=== PATIENT | male | born 1955 | race Two or more races ===

== ENCOUNTER 2024-05-30 06:25 | Emergency (ER) | payer MEDICARE, MEDICAID, SELFPAY ==
[2024-05-30] VITALS (29 sets, daily range): BP systolic 106–145; BP diastolic 72–104; PULSE 61–202; RESP 10–28; TEMP 36.7–37; O2SAT 92–100; BMI 29.8
--- NOTE | 2024-05-30 06:29 | EKG_ITS ---
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
--- NOTE | 2024-05-30 06:45 | PC.NURSE ---
PT BROUGHT TO ER FROM HOME VIA AMBULANCE, PT C/O CP, EMS REPORTED THAT PT HAD SVT, 6MG ADENOSINE GIVEN . NO C/O SOB. PT RECENTLY HAD LIVER AND KIDNEY TRANSPLANT.
--- NOTE | 2024-05-30 06:55 | XR_ITS ---
Examination: AP chest single view Technique one AP portable upright chest single view Exam date and time: May 30, 2024 0808 hrs. Comparison April 14, 2024 Indications: Onset chest pain today. Findings: Lordotic chest Mild prominence left ventricle No lobar pneumonia or pulmonary edema Prominent osteopenia Impression: No pneumonia or pulmonary edema
--- NOTE | 2024-05-30 06:59 | PD.EDCHEST ---
ED Chest Pain RME/HPI General Chief Complaint: Chest Pain Stated Complaint: SVT Time Seen by Provider: 05/30/24 06:43 Arrival date/time: 05/30/24 06:25 Limitations: no limitations RME / HPI RME / HPI narrative: DR. BARBOZA MAIN ED EVALUATION: 69 year old male, 3 weeks post liver transplant with rejection medicines, presents to the Emergency Department [facility] with complaint of chest pain starting around 5:30 this morning. It is now resolved. He has history history of atrial fibrillation, but is no longer on his blood thinners. He currently is chest pain free. He notes no change in his appetite. Has been tolerating PO fluids well. He does take several new medicines for the last three weeks including anti-rejection medicines as prescribed by [facility]. He denies diarrhea. He states now his urination has increased significantly and he is up all night and urinating several times during the day. He denies dysuria. Related Data Home Medications ?Medication ?Instructions ?Recorded ?Confirmed apixaban 5 mg tablet (Eliquis) 5 mg PO QDAY 02/13/24 03/02/24 lenvatinib 12 mg/day (4 mg x 3) 12 mg PO QDAY 02/13/24 03/02/24 capsule (Lenvima) ondansetron 4 mg disintegrating 4 mg PO PRN PRN Vomiting 02/13/24 03/02/24 tablet Previous Rx's ?Medication ?Instructions ?Recorded famotidine 20 mg tablet 20 mg PO QDAY #30 tabs 03/24/21 lactulose 20 gram oral packet 20 g PO BID #30 ea 02/11/24 carvedilol 12.5 mg tablet (Coreg) 12.5 mg PO BID #60 tabs 03/04/24 hydralazine 25 mg tablet 25 mg PO BID #60 tabs 03/04/24 tramadol 50 mg tablet 50 mg PO Q8H PRN pain #10 tabs 04/14/24 metoprolol succinate 50 mg 50 mg PO QDAY #5 tabs 05/30/24 tablet,extended release 24 hr Allergies Allergy/AdvReac Type Severity Reaction Status Date / Time No Known Allergies Allergy Verified 04/03/24 17:53 Review of Systems Review of Systems Systems Reviewed: All systems reviewed, normal except as documented Narrative Review of Systems: GEN: No fever, no chills, no weight loss EYES: No discharge, no visual changes, no pain HEENT: No ear pain, no congestion, no sore throat PULM: No shortness of breath, no cough, no congestion CV: + chest pain (resolved see HPI), no dyspnea on exertion, no palpitations GI: No nausea, no vomiting, no diarrhea, no pain, no constipation : + increased urination; no dysuria MUSC/SKEL: No joint pain, no back pain SKIN: No rash PSYCH: No hallucinations, no depression HEME/LYMPH: No easy bleeding or bruising tendencies NEURO: No weakness, no headache Past Medical History Past Medical History CARDIAC: Positive Atrial Fibrillation, Hypertension and Hypotension GASTROINTESTINAL: Positive Cirrhosis, Hemorrhoids and Gastroesophageal Reflux Disease MUSCULOSKELETAL: Positive Arthritis HEMATOLOGIC: Positive Blood Disorders and Anemia PSYCHO/SOCIAL: Positive Depression and Anxiety OTHER HISTORY: Positive Falls, Blood Transfusions and Cancer Family History FAMILY HISTORY: Positive Family Cardiac Disorders and Family Cancer Social History SMOKING STATUS: Never smoker SUBSTANCE USE: does not use ALCOHOL: Never ED Exam General Limitations: Present no limitations General appearance: Present alert, in no apparent distress and other (he is grossly jaundice) Head Head exam: Present atraumatic, normocephalic and normal inspection Eye Eye exam: Present normal appearance, PERRL and EOMI ENT ENT exam: Present normal exam, normal oropharynx and mucous membranes moist Neck Neck exam: Present normal inspection, full ROM and trachea midline Chest Chest inspection: Present normal inspection and symmetric chest wall rise Respiratory Respiratory exam: Present normal lung sounds bilaterally Cardiovascular Cardiovascular exam: Present regular rate, normal rhythm and normal heart sounds Abdominal Exam Abdominal exam: Present soft, normal bowel sounds and other (Has a large chevron shaped scar with multiple naomi it clean, from recent liver transplant, but otherwise he has no abdominal pain.) Extremities Exam Extremities exam: Present normal inspection and full ROM Back Exam Back exam: Present normal inspection and full ROM Neurological Exam Neurological exam: Present alert, oriented X3 and CN II-XII intact Psychiatric Psychiatric exam: Present normal affect and normal mood Skin Skin exam: Present warm, dry, intact and normal color Course Quality Measures none Orders Category Date Time Status EKG (ED ONLY) *Do not use* NOW Care 05/30/24 06:29 Completed EKG (ED ONLY) *Do not use* NOW Care 05/30/24 12:43 Completed Diet Regular Diet 05/30/24 Breakfast Active EKG (ED Only) Stat Exams 05/30/24 06:29 Draft EKG (ED Only) Stat Exams 05/30/24 12:43 Draft XR chest 1V Stat Exams 05/30/24 06:55 Completed CBC Stat Lab 05/30/24 07:04 Completed CMP [Comprehensive Metabolic Panel] Stat Lab 05/30/24 07:04 Completed Lactate (Lactic Acid) Stat Lab 05/30/24 07:04 Completed Lipase Stat Lab 05/30/24 07:04 Completed Magnesium Stat Lab 05/30/24 07:04 Completed Partial Thromboplastin Time Stat Lab 05/30/24 07:04 Completed Phosphorous Stat Lab 05/30/24 07:04 Completed Procalcitonin Stat Lab 05/30/24 07:04 Completed Prothrombin Time with INR Stat Lab 05/30/24 07:04 Completed Troponin I Stat Lab 05/30/24 07:04 Completed Troponin I Stat Lab 05/30/24 09:40 Completed Magnesium Sulfate 2 GM Ivpb [Magnesium Sulfate Ivpb] Med 05/30/24 07:59 Discontinued 2 gm in 50 ml IV X1 Metoprolol Succinate Xl [Toprol Xl] Med 05/30/24 15:03 Discontinued 50 mg PO X1 ONE Metoprolol Tartrate [Lopressor] Med 05/30/24 06:56 Discontinued 50 mg PO X1 ONE Metoprolol Tartrate [Lopressor] Med 05/30/24 13:00 Discontinued 50 mg PO X1 ONE Reevaluation(s) Reevaluation #1: Patient is back in atrial fibrillation, rate 121. Waiting for transplant to call back. Time: 12:57 Reevaluation #2: Patient is back in sinus Time: 15:05 Vital Signs Vital signs: Vital Signs Temperature 98.4 F 05/30/24 06:25 Pulse Rate 141 H 05/30/24 06:25 Respiratory Rate 14 05/30/24 06:25 Blood Pressure 123/90 H 05/30/24 06:25 Pulse Oximetry (%) 100 05/30/24 06:25 Oxygen Delivery Method Room Air 05/30/24 06:25 Procedures -ED EKG Interpretation #1: Date of EK05/30/24 Time of EK:34 Rate: 140 Interpretation: Interpreted by me Additional EKG comment: atrial fibrillation with RVR, rate 140, no acute ST-T wave changes. #2: Date of EK05/30/24 Time of EK:57 Rate: 72 Interpretation: Interpreted by me Additional EKG comment: second EKG after oral metoprolol: sinus rhythm, rate 72, normal intervals, normal axis, no acute ST-T wave changes. #3: Date of EK05/30/24 Time of EK:57 Rate: 121 Interpretation: Interpreted by me Additional EKG comment: atrial fibrillation, rate 121, no acute ST-T wave changes Chest Pain MDM Narrative MDM Narrative:: Mr. 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 He appears to respond well with oral beta-blockers and is overall asymptomatic. His laboratory testing is much improved today including improvements of his bilirubin level and complete normalization of his serum creatinine. Case was discussed at length with his transplant team at [facility] and they would prefer to for him to hold off on anticoagulation at this point, he has a follow-up with them in 2 days and they will discuss it with his team. As he responds well to oral beta-blockers, he will be prescribed with extended release metoprolol and to follow-up closely with [facility]. IPatricia, am scribing for and in the presence of Dr. Barboza. Patient data External records reviewed:: [facility] previous records (Reviewed last ED visit dated 04/14/24, discharged with the following: Acute pancreatitis.) and EMS form Clinical information provided by:: patient and EMS Social determinants that could affect healthcare access:: none Patient has the following chronic illnesses:: 3 weeks post liver transplant with rejection medicines. Atrial fibrillation, but is no longer on his blood thinners. How is presenting disease/condition affected by chronic disease/condition?: exacerbated by Evaluation data The following diagnostics were reviewed and interpreted by me:: lab results, radiology exam(s) and EKG tracing(s) (1st EKG; AFIB RVR normal axis, normal intervals, normal ST and T wave changes. No stemi. 2nd EKG Normal sinus, normal axis, normal intervals, normal ST and T wave changes. No stemi. 3rd EKG; AFIB RVR normal axis, normal intervals, normal ST and T wave changes. No stemi. 4th EKG Sinus rhythm, normal ) Lab and/or radiology exams considered but not ordered:: none Interpretation Summary: Procedure(s): XR chest 1V Accession Number(s): [id number] cc: Cb Langley PA-C; Ash Barboza MD; Robin Stokes MD~ Examination: AP chest single view Technique one AP portable upright chest single view Exam date and time: May 30, 2024 0808 hrs. Comparison April 14, 2024 Indications: Onset chest pain today. Findings: Lordotic chest Mild prominence left ventricle No lobar pneumonia or pulmonary edema Prominent osteopenia Impression: No pneumonia or pulmonary edema Dictated By: Robin Stokes MD Medications / Prescriptions Medications or Prescriptions considered but not ordered:: none Medication administrations:: Medication Administration History Discontinued Medications Magnesium Sulfate (Magnesium Sulfate Ivpb) 2 gm in 50 mls @ 25 mls/hr IV X1 ONE Stop: 05/30/24 09:58 Last Infusion: 05/30/24 10:59 Dose: Infused Documented By: Admin: 05/30/24 08:53 Dose: 25 mls/hr Documented By: Metoprolol Succinate (Metoprolol Succinate Xl 25 Mg Tabcr) 50 mg PO X1 ONE Stop: 05/30/24 15:04 Last Admin: 05/30/24 15:15 Dose: 50 mg Documented By: Metoprolol Tartrate (Metoprolol Tartrate 25 Mg Tablet) 50 mg PO X1 ONE Stop: 05/30/24 06:57 Last Admin: 05/30/24 07:06 Dose: 50 mg Documented By: CVVicente Metoprolol Tartrate (Metoprolol Tartrate 25 Mg Tablet) 50 mg PO X1 ONE Stop: 05/30/24 13:01 Last Admin: 05/30/24 13:22 Dose: 50 mg Documented By: see above Consultations Consultation(s) initiated? (list below): Yes Consultation #1 (Physician, Specialty, Details): Discussed with transplant surgeon at [facility] regarding patients current status, states patient does not require immediate intervention and can continue with out patient appointment Diagnosis Chest Pain Differential Diagnosis: atypical chest pain, costochondritis, chest pain and biliary colic Most likely diagnosis given after review of the tests above:: AFIB, chest pain, status post renal transplant, liver transplanted. Admission Indicated Admission indicated?: not indicated Admission Request Was there a request for admission?: No Disposition Plan Disposition Plan: Discharge Discharge Attestation Discharge Attestation: The patient and all family members were given an opportunity to ask questions and understood the discharge instructions. Discharge instructions specifically effects, indications for sooner follow up or return to the emergency department, and the expected course of current diagnosis. Patient condition: Stable Discharge Plan Plan Patient Disposition: HOME (Self Care) Prescriptions/Referrals Prescriptions/Med Rec: New metoprolol succinate 50 mg tablet extended release 24 hr 50 mg PO QDAY Qty: 5 0RF No Action famotidine 20 mg tablet 20 mg PO QDAY Qty: 30 0RF ondansetron 4 mg tablet,disintegrating 4 mg PO PRN PRN (Reason: Vomiting) Patient Comments: DISSOLVE 1 TABLET ON THE TONGUE EVERY 4 TO 6 HOURS NEEDED FOR NAUSEA OR VOMITING Eliquis 5 mg tablet 5 mg PO QDAY Patient Comments: TAKE 1 TABLET BY MOUTH TWICE DAILY Lenvima 12 mg/day (4 mg x 3) capsule 12 mg PO QDAY lactulose 20 gram packet 20 g PO BID Qty: 30 0RF carvedilol [Coreg] 12.5 mg tablet 12.5 mg PO BID Qty: 60 0RF Rx Instructions: must administer with a meal/food hydralazine 25 mg tablet 25 mg PO BID Qty: 60 0RF tramadol 50 mg tablet 50 mg PO Q8H PRN (Reason: pain) Qty: 10 0RF Referrals: Cb Langley PA-C [Primary Care Provider] - In 1 week Problem List Clinical Impression: Atrial fibrillation, Chest pain, Liver transplanted, Renal transplant, status post Patient/Caregiver Discharge Instructions Education Materials: ED Atrial Fibrillation, ED Chest Pain, Uncertain Cause Additional Instructions: Contin?e con abdullahi linwood con el equipo de trasplante karyn flor seg?n lo programado. Tiene que ronald un nuevo medicamento para ayudar a controlar abdullahi fibrilaci?n auricular; traiga karyn medicamento tambi?n a abdullahi linwood de seguimiento. Puede regresar al departamento de emergencias antes si los s?ntomas empeoran o si nota alg?n problema nuevo que le preocupe. Print Language: Chadian Stand Alone Forms: [employer] Award Info., Patient Portal Info Letter
[2024-05-30] MEDS: METOPROLOL TARTRATE 25 MG TABLET 50 MG PO ×2 (07:06→13:22)
[2024-05-30 07:09] LABS: Lactate (Lactic Acid) 1.3 mMol/L (0.4-2.0)
[2024-05-30 07:12] LABS: Basophils # (Auto) 0.1 Thou/mm3 (0.0-0.2); Basophils % (Auto) 1 % (0-2.5); Eosinophils # (Auto) 0.2 Thou/mm3 (0.0-0.5); Eosinophils % (Auto) 3 % (0-10); Hematocrit 32.7 % (41.0-53.0); Hemoglobin 11.1 g/dL (13.5-16.0); Immature Granulocytes % (Auto) 1 % (0-0); Immature Granulocytes Auto 0.05 Thou/mm3 (0.00-0.00); Lymphocytes # (Auto) 0.5 Thou/mm3 (1.0-4.8); Lymphocytes % (Auto) 11 % (10-50); Mean Corpuscular HGB Conc 33.9 g/dl (31.0-37.0); Mean Corpuscular Hemoglobin 32.9 pg (25.0-35.0); Mean Corpuscular Volume 97 fL (80-100); Monocytes # (Auto) 0.5 Thou/mm3 (0.0-0.8); Monocytes % (Auto) 10 % (0-12); Neutrophils # (Auto) 3.6 Thou/mm3 (1.8-7.7); Neutrophils % (Auto) 75 % (37-80); Nucleated Red Blood Cell % 0 /100 WBC (0); Platelet Count 302 Thou/mm3 (140-440); RDW Standard Deviation 62.5 fL (35.1-43.9); Red Blood Count 3.37 Miln/mm3 (4.50-5.90); White Blood Count 4.8 Thou/mm3 (3.8-10.6)
--- NOTE | 2024-05-30 07:17 | PC.NURSE ---
[phone] Liver transplant services for nights and weekend
[2024-05-30 07:27] LABS: Partial Thromboplastin Time 22.9 Seconds (22.0-36.0); Prothrombin Time 10.9 Seconds (9.0-12.2)
[2024-05-30 07:32] LABS: Alanine Aminotransferase 64 U/L (10-49); Albumin, Serum 3.7 gm/dL (3.4-4.8); Albumin/Globulin Ratio 1.2 (1.2-2.2); Alkaline Phosphatase 181 U/L (46-116); Anion Gap 6 (7-16); Aspartate Amino Transferase 23 U/L (0-34); BUN/Creatinine Ratio 19 Ratio (12-20); Bilirubin,Total 3.6 mg/dL (0.3-1.2); Blood Urea Nitrogen 25 mg/dL (9-23); Calcium 9.6 mg/dL (8.3-10.6); Calcium (Corrected) 9.8 mg/dL (8.5-10.1); Carbon Dioxide 22.1 mMol/L (20.0-31.0); Chloride 107 mMol/L (98-107); Creatinine (Component) 1.3 mg/dL (0.6-1.3); Estimated Creatinine Clearance 55.3 mL/min (>60); Glucose 103 mg/dL (74-106); Lipase 27 U/L (12-53); Magnesium 1.5 mg/dL (1.6-2.6); Osmolality,Calculated 274 (275-295); Phosphorous 3.2 mg/dL (2.4-5.1); Potassium 4.2 mMol/L (3.4-5.1); Sodium 135 mMol/L (136-145); Total Protein 6.7 gm/dL (5.7-8.2); Troponin I < 0.020 ng/mL (0.0-0.045); eGFR 60 See Note
[2024-05-30 07:36] LABS: Procalcitonin 0.11 ng/ml (0.0-0.49)
[2024-05-30] MEDS: Magnesium Sulfate 2 GM Ivpb 2 GM/50 ML BAG IV (08:53)
[2024-05-30 10:10] LABS: Troponin I < 0.020 ng/mL (0.0-0.045)
--- NOTE | 2024-05-30 12:43 | EKG_ITS ---
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
--- NOTE | 2024-05-30 15:06 | PC.NURSE ---
Pt back in NSR HR 65
[2024-05-30] MEDS: METOPROLOL SUCCINATE XL 25 MG TABCR 50 MG PO (15:15)
== END 2024-05-30 16:56 | disposition home or self-care (01) ==
PROVIDERS: Emergency Provider Emergency Medicine; PCP Family Medicine
DX: I48.0 Paroxysmal atrial fibrillation (principal); R07.9 Chest pain, unspecified; I10 Essential (primary) hypertension; Z94.4 Liver transplant status; Z94.0 Kidney transplant status
CPT/HCPCS: 36415; 71045; 80053; 81001; 83605; 83690; 83735; 84100; 84145; 84484; 85025; 85610; 85730; 93005; 99284; J3475; A9270

== ENCOUNTER 2024-06-15 19:16 | Inpatient (IN) | payer MEDICARE, MEDICAID, SELFPAY ==
--- NOTE | 2024-06-15 19:20 | EKG_ITS ---
[facility] Test Date: 2024-06-15 Pat Name: LACHO MCFARLAND Department: Room: - Gender: Male Folder Operator: : 1955 Requested By: ED Temporary Provider Order Number: [id number] Reading MD: ED Temporary Provider Measurements Intervals [place] Rate: 176 P: [place]: QRS: -11 QRSD: 68 T: 40 QT: 231 QTc: 396 Interpretive Statements ATRIAL FIBRILLATION WITH RAPID VENTRICULAR RESPONSE NONSPECIFIC ST & T-WAVE ABNORMALITY ABNORMAL RHYTHM ECG Compared to ECG 05/30/2024 15:16:47 T-wave abnormality now present Sinus rhythm no longer present /store/S0/[id number]
[2024-06-15 19:42] VITALS: BP 100/61; PULSE 155; RESP 20; TEMP 36.8; O2SAT 97
--- NOTE | 2024-06-15 19:46 | PD.EDRME ---
Rapid Medical Screening Exam RME Arrival date/time: 06/15/24 19:16 69-year-old male with past medical history of Liver CA, Liver Cirrhosis, HTN and Atrial Fibrillation, presents emergency department complaining of chest pain that started approximately 1 hour ago. Chief Complaint: Chest Pain Time Seen by Provider: 06/15/24 19:39 Vital signs: Vital Signs Temperature 98.2 F 06/15/24 19:42 Pulse Rate 155 H 06/15/24 19:42 Respiratory Rate 20 06/15/24 19:42 Blood Pressure 100/61 06/15/24 19:42 Pulse Oximetry (%) 97 06/15/24 19:42 Oxygen Delivery Method Room Air 06/15/24 19:42 Vital signs reviewed by provider: Yes
[2024-06-15] MEDS: SODIUM CHLORIDE 0.9% 1000 ML 1,000 ML 999 ML IV (19:56)
[2024-06-15 19:58] VITALS: BP 100/61; PULSE 174
[2024-06-15] MEDS: DILTIAZEM INJ 5 MG/ML VIAL 5 ML 15 MG IV (19:58)
--- NOTE | 2024-06-15 20:00 | EDNOTE_ITS ---
ED Chest Pain RME/HPI General Chief Complaint: Chest Pain Stated Complaint: CHEST PAIN Time Seen by Provider: 06/15/24 19:39 Source: patient Arrival date/time: 06/15/24 19:16 Mode of arrival: ambulatory Limitations: no limitations RME / HPI RME / HPI narrative: 06/15/24 19:16 69-year-old male with past medical history of Liver CA, Liver Cirrhosis, HTN and Atrial Fibrillation, presents emergency department complaining of chest pain that started approximately [address] FRAZIER MAIN ED EVALUATION: 69 year old male presents to the Emergency Department with complaint of chest pain onset today. Pain is described as aching and rated mild to moderate in severity. No other symptoms reported at this time. PMHx: Liver cancer, liver cirrhosis, hypertension, and atrial fibrillation. Social Hx: Former alcohol abuse. Related Data Home Medications ?Medication ?Instructions ?Recorded ?Confirmed lenvatinib 12 mg/day (4 mg x 3) 12 mg PO QDAY 02/13/24 03/02/24 capsule (Lenvima) ondansetron 4 mg disintegrating 4 mg PO PRN PRN Vomiting 02/13/24 03/02/24 tablet acetaminophen 500 mg tablet 500 mg PO Q6H PRN Pain, Mild 06/16/24 06/16/24 aspirin 81 mg tablet,delayed 81 mg PO QAM 06/16/24 06/16/24 release docusate sodium 100 mg capsule 100 mg PO BID 06/16/24 06/16/24 entecavir 0.5 mg tablet 0.5 mg PO QAMAC 06/16/24 06/16/24 ergocalciferol (vitamin D2) 1,250 50,000 unit PO QWEEK 06/16/24 06/16/24 mcg (50,000 unit) capsule glecaprevir 100 mg-pibrentasvir 40 3 tab PO DAILY 06/16/24 06/16/24 mg tablet (Mavyret) levothyroxine 25 mcg tablet 25 mcg PO QAMAC 06/16/24 06/16/24 magnesium oxide 400 mg (241.3 mg 800 mg PO HS 06/16/24 06/16/24 magnesium) tablet mycophenolate mofetil 250 mg 1,000 mg PO BID 06/16/24 06/16/24 capsule oxycodone 5 mg tablet 2.5 mg PO Q12H PRN Pain, Severe 06/16/24 06/16/24 prednisone 5 mg tablet 5 mg PO QAM 06/16/24 06/16/24 sennosides 8.6 mg tablet (senna) 17.2 mg PO HS PRN Constipation 06/16/24 06/16/24 tacrolimus 0.5 mg capsule, 0.5 mg PO QAM 06/16/24 06/16/24 immediate-release tacrolimus 1 mg capsule, 1 mg PO HS 06/16/24 06/16/24 immediate-release valganciclovir 450 mg tablet 900 mg PO DAILY 06/16/24 06/16/24 Previous Rx's ?Medication ?Instructions ?Recorded famotidine 20 mg tablet 20 mg PO QDAY #30 tabs 03/24/21 lactulose 20 gram oral packet 20 g PO BID #30 ea 02/11/24 tramadol 50 mg tablet 50 mg PO Q8H PRN pain #10 tabs 04/14/24 amiodarone 200 mg tablet 200 mg PO BID 2 weeks #28 tabs 06/17/24 amiodarone 200 mg tablet 200 mg PO QDAY 1 month #30 tabs 06/17/24 apixaban 5 mg tablet 5 mg PO BID 1 month #60 tabs 06/17/24 metoprolol succinate 100 mg 100 mg PO QDAY 1 month #30 tabs 06/17/24 tablet,extended release 24 hr Allergies Allergy/AdvReac Type Severity Reaction Status Date / Time No Known Allergies Allergy Verified 04/03/24 17:53 Review of Systems Review of Systems Systems Reviewed: All systems reviewed, normal except as documented Narrative Review of Systems: GEN: No fever, no chills, no weight loss EYES: No discharge, no visual changes, no pain HEENT: No ear pain, no congestion, no sore throat PULM: No shortness of breath, no cough, no congestion CV: + chest pain, no dyspnea on exertion, no palpitations GI: No nausea, no vomiting, no diarrhea, no pain, no constipation : No frequency, no urgency and no dysuria MUSC/SKEL: No joint pain, no back pain SKIN: No rash PSYCH: No hallucinations, no depression HEME/LYMPH: No easy bleeding or bruising tendencies NEURO: No weakness, no headache Past Medical History Past Medical History CARDIAC: Positive Atrial Fibrillation and Hypertension GASTROINTESTINAL: Positive Cirrhosis, Hemorrhoids and Gastroesophageal Reflux Disease MUSCULOSKELETAL: Positive Arthritis HEMATOLOGIC: Positive Blood Disorders and Anemia PSYCHO/SOCIAL: Positive Depression and Anxiety OTHER HISTORY: Positive Falls, Blood Transfusions and Cancer Family History FAMILY HISTORY: Positive Family Cardiac Disorders and Family Cancer Social History SMOKING STATUS: Never smoker SUBSTANCE USE: does not use ALCOHOL: Former ED Exam Narrative Physical exam: GENERAL APPEARANCE: alert and oriented x 4, well-developed, well-nourished, no acute distress VITALS: All vitals were reviewed and the pulse ox is 100% on room air, which is normal according to my interpretation. HEENT: Normocephalic, atraumatic; pupils equal, round, reactive to light; EOMI; mucous membranes pink, moist; oropharynx clear NECK: Supple LUNGS: CTABL; no wheezes, no rales, no rhonchi HEART: Regular rate, regular rhythm; normal S1, S2; no murmurs ABDOMEN: non distended; normal BS; soft, no tenderness, no guarding, no rebound; no masses, no organomegaly, no hernia BACK: no CVA tenderness EXTREMITIES: atraumatic; no edema NEUROLOGIC: awake; alert and oriented x4; cranial nerves II-XII grossly intact; no focal sensory or motor deficits PSYCHIATRIC: appropriate mood and affect SKIN: warm, dry, normal color; no rashes General Limitations: Present no limitations Course Course Course Narrative: CXR is ordered for determining etiology of chest pain. Quality Measures none Orders Category Date Time Status EKG (ED ONLY) *Do not use* NOW Care 06/15/24 19:20 Completed EKG (ED Only) Stat Exams 06/15/24 19:20 Draft XR chest 1V portable Stat Exams 06/15/24 20:08 Completed B-Type Natriuretic Peptide Stat Lab 06/15/24 20:05 Completed CBC Stat Lab 06/15/24 20:05 Completed Comprehensive Metabolic Panel Stat Lab 06/15/24 20:05 Completed Magnesium Stat Lab 06/15/24 20:05 Completed Partial Thromboplastin Time Stat Lab 06/15/24 20:05 Completed Prothrombin Time with INR Stat Lab 06/15/24 20:05 Completed Troponin I Stat Lab 06/15/24 20:05 Completed Urinalysis Stat Lab 06/15/24 21:03 Completed Dextrose 5%-Water [D5w] 100 ml Med 06/15/24 20:01 Discontinued Diltiazem Inj [Cardizem Inj] 125 mg IV 5 mg/hr Dextrose 5%-Water [D5w] 100 ml Med 06/15/24 20:15 Discontinued Diltiazem Inj [Cardizem Inj] 125 mg IV 5 mg/hr Diltiazem Inj [Cardizem Inj] Med 06/15/24 19:55 Discontinued 15 mg IV X1 ONE Magnesium Sulfate 2 GM Ivpb [Magnesium Sulfate Ivpb] Med 06/16/24 00:31 Discontinued 2 gm in 50 ml IV X1 Sodium Chloride 0.9% 1000 ml [Ns] 1,000 ml Med 06/15/24 19:55 Discontinued IV 999 mls/hr Vital Signs Vital signs: Vital Signs Temperature 98.2 F 06/15/24 19:42 Pulse Rate 155 H 06/15/24 19:42 Respiratory Rate 20 06/15/24 19:42 Blood Pressure 100/61 06/15/24 19:42 Pulse Oximetry (%) 97 06/15/24 19:42 Oxygen Delivery Method Room Air 06/15/24 19:42 Chest Pain MDM Narrative MDM Narrative:: Patricia Jefferson am scribing for and in the presence of Dr. Frazier. Patient data External records reviewed:: [facility] previous records (Reviewed last ED visit dated 05/30/24, discharged with the following: Atrial fibrillation.) Clinical information provided by:: patient Social determinants that could affect healthcare access:: alcohol use (Former alcohol abuse.) Patient has the following chronic illnesses:: Liver cancer, liver cirrhosis, hypertension, and atrial fibrillation. How is presenting disease/condition affected by chronic disease/condition?: exacerbated by Evaluation data The following diagnostics were reviewed and interpreted by me:: lab results, radiology exam(s) and EKG tracing(s) Lab and/or radiology exams considered but not ordered:: none Interpretation Summary: Procedure(s): XR chest 1V portable Accession Number(s): [id number] cc: Robin Stokes MD; Nikolai Stallings (FNP)~ Examination: AP chest single view Technique: AP portable upright chest single view Exam date and time: June 15, 2024 at 2017 hrs. Indications: Onset chest pain today. Findings: Normal heart size Lungs are clear. Moderate osteopenia Impression: No pneumonia or pulmonary edema Dictated By: Robin Stokes MD Medications / Prescriptions Medications or Prescriptions considered but not ordered:: none Medication administrations:: Medication Administration History Discontinued Medications Acetaminophen (Acetaminophen 325 Mg Tablet) 650 mg PO Q6H PRN PRN Reason: Pain (1-3) and Fever >100.3 Stop: 07/16/24 02:35 Acetaminophen (Acetaminophen 500 Mg Tablet) 500 mg PO Q6H PRN PRN Reason: PAIN SCALE 1-3 (mild Stop: 07/16/24 16:32 Acetaminophen (Acetaminophen 325 Mg Tablet) 650 mg PO Q6H PRN PRN Reason: Fever >100.3 Stop: 07/16/24 02:35 Amiodarone HCl (Amiodarone Hcl 200 Mg Tablet) 200 mg PO X1 ONE Stop: 06/17/24 16:51 Last Admin: 06/17/24 17:29 Dose: 200 mg Documented By: TONIA Apixaban (Apixaban 2.5 Mg Tablet) 5 mg PO BID [facility] Stop: 07/16/24 20:59 Last Admin: 06/17/24 09:28 Dose: 5 mg Documented By: Admin: 06/16/24 20:34 Dose: Not Given Documented By: JACQUELYN Non-Admin Reason: Patient Refused Aspirin (Aspirin Ec 81 Mg Tabec) 81 mg PO QDAY [facility] Stop: 07/16/24 09:44 Last Admin: 06/17/24 09:27 Dose: 81 mg Documented By: Admin: 06/16/24 11:44 Dose: 81 mg Documented By: DAJA Valganciclovir 450 (Mg Tablet) 0 ea PO DAILY [facility] Stop: 07/17/24 08:59 Last Admin: 06/17/24 09:29 Dose: 1 tablet Documented By: TONIA Entecavir 0.5 Mg (Tablet) 0 ea PO DAILY PO Stop: 07/17/24 08:59 Last Admin: 06/17/24 09:30 Dose: 1 tablet Documented By: TONIA Mavyret (Glecaprevir And Pibrentasvir 100 Mg/400 Mg Tablet ) 0 ea PO DAILY [facility] Stop: 07/17/24 08:59 Last Admin: 06/17/24 09:31 Dose: 3 tablet Documented By: TONIA Mavyret (Glecaprevir And Pibrentasvir 100 Mg/40 Mg Tablet) 0 ea PO DAILY [facility] Stop: 07/17/24 08:59 Diltiazem HCl (Diltiazem Inj 5 Mg/Ml Vial 5 Ml) 15 mg IV X1 ONE Stop: 06/15/24 19:56 Last Admin: 06/15/24 19:58 Dose: 15 mg Documented By: MAR Docusate Sodium (Docusate Sod 100 Mg Capsule) 100 mg PO BID [facility]; Protocol Stop: 07/16/24 20:59 Last Admin: 06/17/24 09:26 Dose: 100 mg Documented By: Admin: 06/16/24 20:29 Dose: 100 mg Documented By: JACQUELYN Ergocalciferol (Ergocalciferol (Vit D2) 50,000 Unit Cap (Non-Formulary)) 50,000 unit PO QWEEK [facility] Stop: 07/23/24 08:59 Sodium Chloride (Ns) 1,000 mls @ 999 mls/hr IV .Q1H1M ONE Stop: 06/15/24 20:55 Last Infusion: 06/15/24 21:01 Dose: Infused Documented By: Admin: 06/15/24 19:56 Dose: 999 mls/hr Documented By: MAR Diltiazem HCl 125 mg/ Dextrose 125 mls @ 5 mls/hr IV .Q24H [facility] Stop: 07/15/24 20:00 Last Admin: 06/15/24 20:12 Dose: Not Given Documented By: MAR Non-Admin Reason: Duplicate Medication on eMAR Diltiazem HCl 125 mg/ Dextrose 125 mls @ 5 mls/hr IV .Q24H [facility] Stop: 06/16/24 18:35 Last Admin: 06/15/24 20:27 Dose: 5 mg/hr, 5 mls/hr Documented By: MAR Magnesium Sulfate (Magnesium Sulfate Ivpb) 2 gm in 50 mls @ 25 mls/hr IV X1 ONE Stop: 06/16/24 02:30 Last Infusion: 06/16/24 02:48 Dose: Infused Documented By: Admin: 06/16/24 00:37 Dose: 25 mls/hr Documented By: MAR Magnesium Sulfate (Magnesium Sulfate Ivpb) 4 gm in 50 mls @ 12.5 mls/hr IV X1 ONE Stop: 06/16/24 06:39 Last Admin: 06/16/24 03:44 Dose: 12.5 mls/hr Documented By: MAR Amiodarone HCl/Dextrose (Nexterone Ivpb) 150 mg in 100 mls @ 600 mls/hr IV .Q10M ONE Stop: 06/16/24 17:31 Last Admin: 06/16/24 17:43 Dose: 600 mls/hr Documented By: DAJA Amiodarone HCl/Dextrose (Nexterone Ivpb) 360 mg in 200 mls @ 33.333 mls/hr IV .Q6H ONE Stop: 06/16/24 23:31 Last Admin: 06/16/24 17:54 Dose: 33.333 mls/hr Documented By: DAJA Amiodarone HCl/Dextrose (Nexterone Ivpb) 360 mg in 200 mls @ 16.667 mls/hr IV .Q12H PO Stop: 06/17/24 23:31 Last Admin: 06/17/24 12:10 Dose: 16.667 mls/hr Documented By: Infusion: 06/17/24 11:55 Dose: Infused Documented By: Admin: 06/16/24 23:55 Dose: 16.667 mls/hr Documented By: JACQUELYN Levothyroxine Sodium (Levothyroxine Sodium 25 Mcg Tablet) 25 mcg PO ACBR PO Stop: 07/17/24 05:59 Last Admin: 06/17/24 05:57 Dose: 25 mcg Documented By: JACQUELYN Magnesium Oxide (Magnesium Oxide 400 Mg Tablet) 800 mg PO HS PO Stop: 07/16/24 20:59 Last Admin: 06/16/24 20:29 Dose: 800 mg Documented By: JACQUELYN Metoprolol Succinate (Metoprolol Succinate Xl 25 Mg Tabcr) 100 mg PO QDAY PO Stop: 07/16/24 17:29 Last Admin: 06/17/24 09:27 Dose: 100 mg Documented By: Admin: 06/16/24 17:42 Dose: 100 mg Documented By: DAJA Mycophenolate Mofetil (Mycophenolate 250 Mg Capsule (Non-Formulary)) 1,000 mg PO BID PO Stop: 07/16/24 20:59 Last Admin: 06/17/24 09:26 Dose: 1,000 mg Documented By: Admin: 06/16/24 20:29 Dose: 1,000 mg Documented By: JACQUELYN Ondansetron HCl (Ondansetron Inj 2 Mg/Ml Inj 2 Ml) 4 mg IV Q6H PRN; Protocol PRN Reason: NAUSEA OR VOMITING Stop: 07/16/24 02:35 Pantoprazole Sodium (Pantoprazole 20 Mg Tablet) 20 mg PO QDAY [facility] Stop: 07/16/24 09:44 Last Admin: 06/17/24 09:27 Dose: 20 mg Documented By: Admin: 06/16/24 11:44 Dose: 20 mg Documented By: DAJA Prednisone (Prednisone 5 Mg Tablet) 5 mg PO QDAY [facility] Stop: 07/16/24 09:29 Last Admin: 06/17/24 09:28 Dose: 5 mg Documented By: Admin: 06/16/24 11:44 Dose: 5 mg Documented By: DAJA Sennosides (Senna Tablet) 1 tab PO QDAY PRN; Protocol PRN Reason: CONSTIPATION Stop: 07/16/24 09:33 Tacrolimus (Tacrolimus 1 Mg Capsule (Non-Formulary)) 1 mg PO HS [facility] Stop: 07/16/24 20:59 Last Admin: 06/16/24 20:30 Dose: 1 mg Documented By: JACQUELYN Tacrolimus (Tacrolimus 0.5 Mg Capsule (Non-Formulary)) 0.5 mg PO QAM [facility] Stop: 07/17/24 08:59 Last Admin: 06/17/24 09:28 Dose: 0.5 mg Documented By: TONIA Trimethoprim/Sulfamethoxazole (Trimethoprim/Sulfa 160/800 Ds Tablet) 1 tab PO MoWeFr [facility] Stop: 06/24/24 08:59 Last Admin: 06/17/24 09:27 Dose: 1 tab Documented By: TONIA see above Consultations Consultation(s) initiated? (list below): No Diagnosis Chest Pain Differential Diagnosis: costochondritis, chest pain and biliary colic Most likely diagnosis given after review of the tests above:: See clinical impression below Admission Indicated Admission indicated?: not indicated Admission Request Was there a request for admission?: No Disposition Plan Disposition Plan: Discharge Discharge Attestation Discharge Attestation: The patient and all family members were given an opportunity to ask questions and understood the discharge instructions. Discharge instructions specifically effects, indications for sooner follow up or return to the emergency department, and the expected course of current diagnosis. Patient condition: Stable Critical Care Time Critical Care Time Critical Care Time: Yes Total Critical Care Time (min.): 30 Attestation: The high probability of sudden, clinically significant deterioration in the patient's condition required the highest level of my preparedness to intervene urgently. The services I provided to this patient were to treat and/or prevent clinically significant deterioration. Services included the following: chart data review, reviewing nursing notes and/or old charts, documentation time, computer systems consultant collaboration regarding findings and treatment options, medication orders and management, direct patient care, vital sign assessments and ordering, interpreting and reviewing diagnostic studies and lab tests. Aggregate critical care time includes only time during which I was engaged in work directly related to the patient's care, as described above, whether at bedside or elsewhere in the Emergency Department. It did not include time spent performing other reported procedures or the services of residents, students, nurses or physician assistants. Discharge Plan Plan Patient Disposition: Admit Acute Care w/in Hospital Problem List Clinical Impression: Atrial fibrillation with RVR Patient/Caregiver Discharge Instructions Other Activity Instructions:: ? Follow-up with PCP within 1 week of discharge ? Follow-up with cardiology, Dr. Jimenez within 1 week of discharge ? Continue taking ELIQUIS 5 mg twice daily ? Continue taking ASPIRIN 81 mg daily ? Continue taking AMIODARONE 200 mg twice daily for 2 weeks, then once daily after that ? Continue METOPROLOL 100 mg daily ? Continue all other medications as prescribed by your transplant team ? Return to ED if symptoms worsen, persist or new symptoms develop
--- NOTE | 2024-06-15 20:02 | PC.NURSE ---
Dr. Frazier at bedside to assess patient with HR 170's.
[2024-06-15 20:04] VITALS: BP 92/67; PULSE 114; RESP 20; O2SAT 99
--- NOTE | 2024-06-15 20:08 | XR_ITS ---
Examination: AP chest single view Technique: AP portable upright chest single view Exam date and time: June 15, 2024 at 2017 hrs. Indications: Onset chest pain today. Findings: Normal heart size Lungs are clear. Moderate osteopenia Impression: No pneumonia or pulmonary edema
[2024-06-15 20:27] VITALS: BP 96/65; PULSE 113
[2024-06-15] MEDS: DILTIAZEM INJ 125 MG in DEXTROSE 5%-WATER 100 ML IV (20:27)
[2024-06-15 21:00] VITALS: BP 89/67; PULSE 113; RESP 20; O2SAT 100
[2024-06-15 21:07] LABS: Basophils # (Auto) 0.1 Thou/mm3 (0.0-0.2); Basophils % (Auto) 1 % (0-2.5); Eosinophils # (Auto) 0.6 Thou/mm3 (0.0-0.5); Eosinophils % (Auto) 7 % (0-10); Hematocrit 30.8 % (41.0-53.0); Hemoglobin 10.4 g/dL (13.5-16.0); Immature Granulocytes % (Auto) 1 % (0-0); Immature Granulocytes Auto 0.05 Thou/mm3 (0.00-0.00); Lymphocytes # (Auto) 0.7 Thou/mm3 (1.0-4.8); Lymphocytes % (Auto) 9 % (10-50); Mean Corpuscular HGB Conc 33.8 g/dl (31.0-37.0); Mean Corpuscular Hemoglobin 31.6 pg (25.0-35.0); Mean Corpuscular Volume 94 fL (80-100); Monocytes # (Auto) 0.6 Thou/mm3 (0.0-0.8); Monocytes % (Auto) 7 % (0-12); Neutrophils # (Auto) 6.1 Thou/mm3 (1.8-7.7); Neutrophils % (Auto) 75 % (37-80); Nucleated Red Blood Cell % 0 /100 WBC (0); Platelet Count 378 Thou/mm3 (140-440); RDW Standard Deviation 52.3 fL (35.1-43.9); Red Blood Count 3.29 Miln/mm3 (4.50-5.90); White Blood Count 8.1 Thou/mm3 (3.8-10.6)
[2024-06-15 21:27] LABS: Collection Type, Urine Clean Catch
[2024-06-15 21:34] LABS: INR 1.1 (0.9-1.3); Partial Thromboplastin Time 24.2 Seconds (22.0-36.0); Prothrombin Time 11.6 Seconds (9.0-12.2)
[2024-06-15 21:51] LABS: B-Type Natriuretic Peptide 346 pg/mL (0-100)
[2024-06-15 21:52] LABS: Bilirubin,Urine 1+ (Negative); Blood,Urine Negative (Negative); Clarity,Urine Clear (Clear/Hazy); Color,Urine Yellow (Lt Yel-Yel); Glucose, Urine Negative (Negative); Hyaline Casts,Urine < 1 /hpf (0-1); Ketones,Urine Negative (Negative); Leukocyte Esterase,Urine Negative (Negative); Nitrite,Urine Negative (Negative); PH,Urine 6.5 (5.0-7.0); Protein,Urine 2+ (Neg - Trace); RBC,Urine 7 /hpf (0-3); Specific Gravity,Urine 1.031 (1.001-1.035); Squamous Epithelial Cell,Urine < 1 /hpf (0-5); WBC,Urine 8 /hpf (0-5)
[2024-06-15 22:18] VITALS: BP 103/72; PULSE 98; RESP 21; TEMP 36.7; O2SAT 100
[2024-06-15 22:31] LABS: Alanine Aminotransferase 10 U/L (10-49); Albumin, Serum 4.3 gm/dL (3.4-4.8); Albumin/Globulin Ratio 1.4 (1.2-2.2); Alkaline Phosphatase 126 U/L (46-116); Anion Gap 15 (7-16); Aspartate Amino Transferase 18 U/L (0-34); BUN/Creatinine Ratio 14 Ratio (12-20); Bilirubin,Total 2.5 mg/dL (0.3-1.2); Blood Urea Nitrogen 17 mg/dL (9-23); Calcium 9.3 mg/dL (8.3-10.6); Calcium (Corrected) 9.3 mg/dL (8.5-10.1); Carbon Dioxide 17.9 mMol/L (20.0-31.0); Chloride 101 mMol/L (98-107); Creatinine (Component) 1.2 mg/dL (0.6-1.3); Globulin 3.1 gm/dL (2.3-3.5); Glucose 200 mg/dL (74-106); Magnesium 1.5 mg/dL (1.6-2.6); Osmolality,Calculated 275 (275-295); Potassium 4.5 mMol/L (3.4-5.1); Sodium 134 mMol/L (136-145); Total Protein 7.4 gm/dL (5.7-8.2); Troponin I < 0.020 ng/mL (0.0-0.045); eGFR > 60 See Note
[2024-06-16] VITALS (17 sets, daily range): BP systolic 98–122; BP diastolic 63–81; PULSE 68–118; RESP 14–99; TEMP 36.2–36.7; O2SAT 96–100
[2024-06-16] MEDS: Magnesium Sulfate 2 GM Ivpb 2 GM/50 ML BAG IV (00:37)
[2024-06-16] MEDS: Magnesium Sulfate 4 GM Ivpb 4 GM/50 ML BAG IV (03:44)
--- NOTE | 2024-06-16 05:37 | ESHP_ITS ---
Documentation for date of: 06/16/24 [facility] History of Present Illness History of present illness: The patient is a 69-year-old male with a past medical history of liver CA and liver cirrhosis s/p transplant, hypertension, GERD and A-fib who presented to the ED on 06/15/2024 with complaints of chest pain. The pain was said to be located in the right side of his chest at onset, not reproducible on palpation, does not worsen with breathing/coughing. At home, the patient blood pressure was taken which showed a heart rate of high 90s to low while chest pain still persisted. Note that the patient presented to the ED about 2 weeks ago with similar symptoms of chest pain returned resolved by the time of interview. Patient did get a liver transplant about 5 weeks ago at [facility] and was started on some antirejection medications but also had to stop taking Eliquis or any other blood thinners as instructed. Patient is also on carvedilol at 12.5 mg twice daily was unable to give a complete track record of all the medications he is taking at this time. He denied cough, fever/chills, chest pain, abdominal pain. ED course: In the ED, patient was noted to be tachycardic with a heart rate of 155 beats per minutes, and up trended to 170s. EKG was done which showed A-fib with RVR, rates at the time was about 172 bpm. Chest x-ray was also done which showed no pneumonia or pulmonary edema. The patient was given 1 dose of diltiazem 15 mg and started on diltiazem drip. Labs show Hemoglobin of 10.4, otherwise CBC is unremarkable. CMP significant for mild hyponatremia 134, bicarb 17.9, glucose 200 and mag1. 5 T. bili 2.5, ALP 136, BNP 346. Review of Systems Review of Systems Narrative Review of Systems: GENERAL: Denies fevers/chills or diaphoresis. HEENT: Denies headache or visual/hearing changes. Denies nasal discharge. NEURO: Denies unusual weakness or difficulty speaking. CARDIO: Admits chest pain or palpitations. PULM: Denies SOB, coughing, or wheezing. GI: Denies abdominal pain, N/V/C/D/reflux/gas, bright red blood per rectum or melena. Reports having BMs. URO: Denies burning/itching/pain/urinary changes. MSK/EXT/SKIN: Denies joint/skeletal/muscle pain, issues/changes in upper or lower extremities, itchiness, or superficial pain. PSYCH: Cooperative, pleasant mood & affect. Exam Vital Signs Temp Pulse Resp BP Pulse Ox O2 Del Method 97.9 F 87 23 H 103/64 100 Room Air 06/16/24 02:57 06/16/24 05:00 06/16/24 05:00 06/16/24 05:00 06/16/24 05:00 06/16/24 02:57 Narrative Exam GENERAL: AAOX3 NEURO: TEAM LEADER grossly intact, moves extremities x4 HEENT: Moist mucosa. Eyes open, symmetrical, & clear CARDIO: No chest pain on palpation. Irregular heart rate, no obvious murmurs PULM: No noted coughing/dyspnea. Lungs CTA B/L GI: Abdomen soft, nondistended, no pain on palpation. BSx4 URO/SEARCH ENGINE OPTIMIZATION CONSULTANT:: No further abnormalities noted. SKIN/MSK/EXT: No wounds/rashes/edema/amputations, no pain on palpation. Pedal pulses present B/L Results: Labs 06/16/24 05:31 06/16/24 05:31 Labs: Short CBC 06/15/24 Range/Units 20:05 WBC 8.1 (3.8-10.6) Thou/mm3 Hgb 10.4 L (13.5-16.0) g/dL Hct 30.8 L (41.0-53.0) % Plt Count 378 D (140-440) Thou/mm3 BMP 06/15/24 20:05 Sodium 134 L Potassium 4.5 Chloride 101 Carbon Dioxide 17.9 L BUN 17 Creatinine 1.2 Glucose 200 H Calcium 9.3 Cardiac Enzymes 06/15/24 Range/Units 20:05 Troponin I < 0.020 (0.0-0.045) ng/mL Liver Function 06/15/24 Range/Units 20:05 Total Bilirubin 2.5 H (0.3-1.2) mg/dL AST 18 (0-34) U/L ALT 10 (10-49) U/L Alkaline Phosphatase 126 H (46-116) U/L Albumin 4.3 (3.4-4.8) gm/dL Urine 06/15/24 Range/Units 21:03 Urine Color Yellow (Lt Yel-Yel) Urine Clarity Clear (Clear/Hazy) Urine pH 6.5 (5.0-7.0) Ur Specific [place] 1.031 (1.001-1.035) Urine Protein 2+ A (Neg - Trace) Urine Glucose (UA) Negative (Negative) Quality Measures Quality Measures none Advance care planning discussed with:: child Medications Home Medications and Allergies Home Medications ?Medication ?Instructions ?Recorded ?Confirmed ?Type apixaban 5 mg tablet (Eliquis) 5 mg PO QDAY 02/13/24 03/02/24 History lenvatinib 12 mg/day (4 mg x 3) 12 mg PO QDAY 02/13/24 03/02/24 History capsule (Lenvima) ondansetron 4 mg disintegrating 4 mg PO PRN PRN Vomiting 02/13/24 03/02/24 History tablet acetaminophen 500 mg tablet 500 mg PO Q6H PRN Pain, Mild 06/16/24 06/16/24 History aspirin 81 mg tablet,delayed 81 mg PO QAM 06/16/24 06/16/24 History release docusate sodium 100 mg capsule 100 mg PO BID 06/16/24 06/16/24 History entecavir 0.5 mg tablet 0.5 mg PO QAMAC 06/16/24 06/16/24 History ergocalciferol (vitamin D2) 1,250 50,000 unit PO QWEEK 06/16/24 06/16/24 History mcg (50,000 unit) capsule glecaprevir 100 mg-pibrentasvir 40 3 tab PO DAILY 06/16/24 06/16/24 History mg tablet (Mavyret) levothyroxine 25 mcg tablet 25 mcg PO QAMAC 06/16/24 06/16/24 History magnesium oxide 400 mg (241.3 mg 800 mg PO HS 06/16/24 06/16/24 History magnesium) tablet mycophenolate mofetil 250 mg 1,000 mg PO BID 06/16/24 06/16/24 History capsule omeprazole 20 mg capsule,delayed 20 mg PO QAM 06/16/24 06/16/24 History release oxycodone 5 mg tablet 2.5 mg PO Q12H PRN Pain, Severe 06/16/24 06/16/24 History prednisone 5 mg tablet 5 mg PO QAM 06/16/24 06/16/24 History sennosides 8.6 mg tablet (senna) 17.2 mg PO HS PRN Constipation 06/16/24 06/16/24 History sulfamethoxazole 800 1 tab PO MWF 06/16/24 06/16/24 History mg-trimethoprim 160 mg tablet tacrolimus 0.5 mg capsule, 0.5 mg PO QAM 06/16/24 06/16/24 History immediate-release tacrolimus 1 mg capsule, 1 mg PO HS 06/16/24 06/16/24 History immediate-release valganciclovir 450 mg tablet 900 mg PO DAILY 06/16/24 06/16/24 History Allergies Allergy/AdvReac Type Severity Reaction Status Date / Time No Known Allergies Allergy Verified 04/03/24 17:53 Visit Medications Acetaminophen (Acetaminophen 325 Mg Tablet) 650 mg PO Q6H PRN PRN Reason: Pain (1-3) and Fever >100.3 Stop: 07/16/24 02:35 Diltiazem HCl 125 mg/ Dextrose 125 mls @ 5 mls/hr IV .Q24H PO Stop: 07/15/24 20:14 Last Admin: 06/15/24 20:27 Dose: 5 mg/hr, 5 mls/hr Magnesium Sulfate (Magnesium Sulfate Ivpb) 4 gm in 50 mls @ 12.5 mls/hr IV X1 ONE Stop: 06/16/24 06:39 Last Admin: 06/16/24 03:44 Dose: 12.5 mls/hr Ondansetron HCl (Ondansetron Inj 2 Mg/Ml Inj 2 Ml) 4 mg IV Q6H PRN; Protocol PRN Reason: NAUSEA OR VOMITING Stop: 07/16/24 02:35 Discontinued Medications Diltiazem HCl (Diltiazem Inj 5 Mg/Ml Vial 5 Ml) 15 mg IV X1 ONE Stop: 06/15/24 19:56 Last Admin: 06/15/24 19:58 Dose: 15 mg Sodium Chloride (Ns) 1,000 mls @ 999 mls/hr IV .Q1H1M ONE Stop: 06/15/24 20:55 Last Infusion: 06/15/24 21:01 Dose: Infused Diltiazem HCl 125 mg/ Dextrose 125 mls @ 5 mls/hr IV .Q24H PO Stop: 07/15/24 20:00 Last Admin: 06/15/24 20:12 Dose: Not Given Magnesium Sulfate (Magnesium Sulfate Ivpb) 2 gm in 50 mls @ 25 mls/hr IV X1 ONE Stop: 06/16/24 02:30 Last Infusion: 06/16/24 02:48 Dose: Infused Assessment & Plan Plan Summary: The patient is a 61-year-old male with a past medical history of liver CA and cirrhosis s/p transplant, hypertension, GERD and A-fib who presented to the ED on 06/15/2020 for complaints of chest pain. Patient was found to have A-fib with RVR and started on IV diltiazem. #Atrial fibrillation with RVR #History of A-fib The patient presented with a chief complaint of chest pain, initially starting in the right side of the chest, generalizing to the left side as well. Pain does not change with position, inspiration or coughing and has been constant since the onset. In the ED, patient was noted to be tachycardic with a heart rate of 155 and EKG showed A-fib with RVR, heart rate 80, 172. Chest x-ray was negative for any acute processes. The patient was given 1 dose of diltiazem 50 mg and started on IV diltiazem drip. On examination, patient no longer endorses chest pain/dyspnea, still in A-fib but rate controlled. Eliquis held just before translant procedure Plan: -Admit to telemetry -Continue diltiazem drip -Continue to monitor telemetry -Consider restarting patient's Coreg after med rec is done #History of liver cirrhosis #History of liver CA The patient has a history of liver cirrhosis and consequent liver cancer about 5 weeks ago had a liver transplant done in [facility]. Patient has no abdominal pain, seems of tolerated the procedure well. And is on antirejection medications-mycophenolate, tacrolimus, valganciclovir, entecavir Plan: -Complete med rec's -Commence medications once completed #Mild isotonic hyponatremia #Hypomagnesemia Admitting sodium-134. Hyperproteinemia. Admitting magnesium-1.5 Plan: -IV magnesium 4 g -Lipid profile -Continue to monitor sodium #History of hypertension Patient has a history of hypertension and per chart review is on lisinopril 10 mg and metoprolol succinate 50 mg. Blood pressure on admission soft Plan: -Hold antihypertensives for now #History of hypothyroidism The patient is on levothyroxine, last known TSH in February. Plan: -Repeat TSH -Restart medication once med rec is completed. Health maintenance: Dispo: Tele Diet: Cardiac GI: Pantoprazole DVT: SC Heparin Vincent: None Lines: Peripheral Med Rec: Pending, f/u PT: Code:Full Case was discussed with attending physician, Dr Dileep Amaya MD PGY-1 Attending Provider Attestation/Addendum 69-year-old male patient with liver cirrhosis, liver cancer status post liver transplant was admitted because of chest pain, palpitations. Patient has atrial fibrillation currently not on anticoagulation. He arrived the patient was found to be in rapid A-fib. Blood pressure stable. He is alert and oriented. He has mild chest pain. He is not short of breath. Patient is not hypoxic. He was started on diltiazem drip. Cardiology consult was requested.
[2024-06-16 05:56] LABS: Basophils # (Auto) 0.1 Thou/mm3 (0.0-0.2); Basophils % (Auto) 1 % (0-2.5); Eosinophils # (Auto) 0.8 Thou/mm3 (0.0-0.5); Eosinophils % (Auto) 15 % (0-10); Hematocrit 27.4 % (41.0-53.0); Hemoglobin 9.2 g/dL (13.5-16.0); Immature Granulocytes % (Auto) 0 % (0-0); Immature Granulocytes Auto 0.02 Thou/mm3 (0.00-0.00); Lymphocytes # (Auto) 0.4 Thou/mm3 (1.0-4.8); Lymphocytes % (Auto) 7 % (10-50); Mean Corpuscular HGB Conc 33.6 g/dl (31.0-37.0); Mean Corpuscular Hemoglobin 31.6 pg (25.0-35.0); Mean Corpuscular Volume 94 fL (80-100); Monocytes # (Auto) 0.4 Thou/mm3 (0.0-0.8); Monocytes % (Auto) 9 % (0-12); Neutrophils # (Auto) 3.3 Thou/mm3 (1.8-7.7); Neutrophils % (Auto) 68 % (37-80); Nucleated Red Blood Cell % 0 /100 WBC (0); Platelet Count 288 Thou/mm3 (140-440); RDW Standard Deviation 51.9 fL (35.1-43.9); Red Blood Count 2.91 Miln/mm3 (4.50-5.90); White Blood Count 4.9 Thou/mm3 (3.8-10.6)
[2024-06-16 07:32] LABS: Alanine Aminotransferase 12 U/L (10-49); Albumin, Serum 3.7 gm/dL (3.4-4.8); Albumin/Globulin Ratio 1.5 (1.2-2.2); Alkaline Phosphatase 103 U/L (46-116); Anion Gap 10 (7-16); Aspartate Amino Transferase < 10 U/L (0-34); BUN/Creatinine Ratio 16 Ratio (12-20); Bilirubin,Total 1.8 mg/dL (0.3-1.2); Blood Urea Nitrogen 13 mg/dL (9-23); Calcium 8.8 mg/dL (8.3-10.6); Carbon Dioxide 21.7 mMol/L (20.0-31.0); Cardiac Risk Estimate 7.7 RATIO (4.0-6.7); Chloride 105 mMol/L (98-107); Cholesterol 178 mg/dL (132-200); Creatinine (Component) 0.8 mg/dL (0.6-1.3); Globulin 2.5 gm/dL (2.3-3.5); Glucose 110 mg/dL (74-106); HDL Cholesterol 23 mg/dL (40-60); LDL Cholesterol,Calculated 109 mg/dL (0-130); Magnesium 2.4 mg/dL (1.6-2.6); Osmolality,Calculated 274 (275-295); Potassium 3.9 mMol/L (3.4-5.1); Sodium 137 mMol/L (136-145); Total Protein 6.2 gm/dL (5.7-8.2); Triglycerides 231 mg/dL (30-150); eGFR > 60 See Note
--- NOTE | 2024-06-16 07:47 | ECHO_ITS ---
Transthoracic Echo Report Ht (in): 66 Wt (lb): 180 Exam Location: Portable Status: Inpatient Machine Quilt Stuffer: Heather Noland Indications: Procedure Performed: BP: 107 / 79 HR: 71 Rhythm: Atrial fibrillation Technical Quality: Fair MEASUREMENTS (Male / Female) Normal Values 2D ECHO LV Diastolic Diameter PLAX 4.2 cm 4.2 - 5.9 / 3.9 - 5.3 cm LV Systolic Diameter PLAX 2.8 cm IVS Diastolic Thickness 1.1 cm 0.6 - 1.0 / 0.6 - 0.9 cm LVPW Diastolic Thickness 1.2 cm 0.6 - 1.0 / 0.6 - 0.9 cm LV Relative Wall Thickness 0.5 LVOT Diameter 2.0 cm LA Volume Index 30.5 cm?/m? 16 - 28 cm?/m? Ascending Aorta Diameter 3.0 cm M-MODE Aortic Root Diameter MM 3.1 cm LA Systolic Diameter MM 5.2 cm LA Ao Ratio MM 1.7 AV Cusp Separation MM 2.1 cm DOPPLER AV Peak Velocity 149.0 cm/s AV Peak Gradient 8.9 mmHg AV Mean Gradient 5.0 mmHg AV Velocity Time Integral 22.2 cm LVOT Peak Velocity 104.0 cm/s LVOT Peak Gradient 4.3 mmHg LVOT Velocity Time Integral 17.8 cm LVOT Cardiac Index 2013.1 cm?/min?m? AV Area Cont Eq vti 2.5 cm? AV Area Cont Eq pk 2.2 cm? MV Peak Velocity 90.4 cm/s MV Peak Gradient 3.3 mmHg MV Mean Velocity 51.5 cm/s MV Mean Gradient 1.0 mmHg MV Area PHT 4.2 cm? MR Peak Velocity 432.5 cm/s MR Peak Gradient 74.8 mmHg Mitral E Point Velocity 67.4 cm/s Mitral A Point Velocity 0.5 cm/s Mitral E to A Ratio 139.0 LV E' Lateral Velocity 13.6 cm/s Mitral E to LV E' Lateral Ratio 5.0 LV E' Septal Velocity 6.3 cm/s Mitral E to LV E' Septal Ratio 10.7 TR Peak Velocity 201.0 cm/s TR Peak Gradient 16.2 mmHg FINDINGS Left Ventricle Normal left ventricular size, wall thickness, systolic function with no obvious regional wall motion abnormalities. The ejection fraction is visually estimated at 60-65%. Right Ventricle The right ventricle is normal in size and systolic function. The estimated right ventricular systoli c pressure, 22 mmHg. RPA 5. Left Atrium The left atrium is normal by two-dimensional, color flow and Doppler imaging with no structural abnormalities, no thrombus formation present. Right Atrium The right atrium is normal by two-dimensional imaging, color flow and Doppler imaging with no struct ural abnormalities, no thrombus formation present. Atrial Septum The interatrial septum appears normal with no evidence of a shunt. Aorta The aorta is normal by two-dimensional, color flow and Doppler interrogation. Mitral Valve The mitral valve is normal by two-dimensional, color flow and Doppler interrogation. There is mild mitral valve regurgitation. Aortic Valve The aortic valve is trileaflet and normal by two-dimensional, color flow and Doppler interrogation. There is no significant aortic valve regurgitation. Tricuspid Valve The tricuspid valve is normal by two-dimensional, color flow and Doppler interrogation. There is mil d tricuspid valve regurgitation. Pulmonic Valve There is no significant pulmonic valve regurgitation. Vessels The pulmonary artery appears normal. The inferior vena cava pulmonary and hepatic veins appear vanessa l. Pericardium The pericardium is normal by two-dimensional imaging. There is no significant pericardial effusion. CONCLUSIONS Indication: Elevated BNP Normal LV size and function. Cannot determine diastolic function due to afib. Estimated EF 60-65% Normal RV size and function. Mild MR, TR. Carlos Jimenez (Electronically Signed) Final Date: 16 June 2024 18:51
[2024-06-16 07:48] LABS: Thyroid Stimulating Hormone 1.95 uIU/mL (0.55-4.78)
--- NOTE | 2024-06-16 07:54 | ESPR_ITS ---
<Statement entered by Neeraj Downey MD - 06/16/24 15:33> Patient was seen and examined by me personally. I agree with most of the assessment and plan as discussed with the audit practice intern physician, and my attending, Dr. Mata. 69y/o M with recent liver transplant at [facility] a/f AFRVR and started on diltiazem drip. RVR resolved. Pending cardio recs. Records from [facility] reviewed. Family brought patient's immunosuppressive therapy, which was resumed. Neeraj Downey MD, PGY-3 Documentation for date of: 06/16/24 Subjective Subjective Interval history: No acute overnight events. Patient maintained on DILTIAZEM drip. Heart rate control. Denies palpitation, chest pain, shortness of breath, headaches, visual changes, or urinary symptoms. Exam Vital Signs Temp Pulse Resp BP Pulse Ox O2 Del Method 97.9 F 104 H 20 103/64 100 Room Air 06/16/24 02:57 06/16/24 06:09 06/16/24 06:09 06/16/24 05:00 06/16/24 05:00 06/16/24 02:57 Narrative Exam GENERAL: Well-appearing elderly male, NAD, breathing comfortably on room air HEENT: NCAT.?RAQUEL. Oral mucosa is moist. Patent Nares NECK: Supple, nontender, no thyromegaly, no meningismus, no JVD, no step offs CHEST: Symmetrical, atraumatic, and with equal expansion, Nontender on palpation no deformity and no crepitus. CARDIOVASCULAR: RRR, no m/g/r LUNGS: CTAB, no w/r/r. Symmetrical chest rise. No intercostal subcostal retraction. ABDOMEN: Soft, flat, nontender. No guarding/rebound tenderness/masses. +BS. Surgical site dry without sign of infection or dehiscence. EXTREMITIES: Nontender.? No edema/cyanosis.?Moves all 4 extremities well, with full ROM and good CSM. SKIN: Warm and dry, mild diffuse jaundice, mild bilateral scleral icterus. MSK: No lumbar or midline, no CVA, no paraspinal muscle spasm or tenderness. NEURO: VALDES x4, CN II-XII grossly intact.?No focal neurologic deficits. PSYCHIATRIC: Normal mood and affect, cooperative, no SI or HI or hallucinations. Objective Labs 06/16/24 05:31 06/16/24 05:31 Labs: Laboratory Results - last 24 hr 06/15/24 06/15/24 06/16/24 20:05 21:03 05:31 WBC 8.1 4.9 RBC 3.29 L 2.91 L Hgb 10.4 L 9.2 L Hct 30.8 L 27.4 L MCV 94 94 MCH 31.6 31.6 MCHC 33.8 33.6 RDW Std Deviation 52.3 H 51.9 H Plt Count 378 D 288 D Neut % (Auto) 75 68 Lymph % (Auto) 9 L 7 L [place] % (Auto) 7 9 Eos % (Auto) 7 15 H Baso % (Auto) 1 1 Neut # (Auto) 6.1 3.3 Lymph # (Auto) 0.7 L 0.4 L [place] # (Auto) 0.6 0.4 Eos # (Auto) 0.6 H 0.8 H Baso # (Auto) 0.1 0.1 Immature Gran # (Auto) 0.05 H 0.02 H Absolute Nucleated RBC 0.00 0.00 Immature Gran % 1 H 0 Nucleated RBC % 0 0 PT 11.6 INR 1.1 APTT 24.2 Sodium 134 L 137 Potassium 4.5 3.9 D Chloride 101 105 Carbon Dioxide 17.9 L 21.7 Anion Gap 15 10 BUN 17 13 Creatinine 1.2 0.8 Estim Creat Clear Calc Not Performed. Not Performed. eGFR > 60 > 60 BUN/Creatinine Ratio 14 16 Glucose 200 H 110 H D Calculated Osmolality 275 274 L Calcium 9.3 8.8 Corrected Calcium 9.3 9.0 Magnesium 1.5 L 2.4 Total Bilirubin 2.5 H 1.8 H D AST 18 < 10 ALT 10 12 Alkaline Phosphatase 126 H 103 D Troponin I < 0.020 B-Natriuretic Peptide 346 H Total Protein 7.4 6.2 Albumin 4.3 3.7 D Globulin 3.1 2.5 Albumin/Globulin Ratio 1.4 1.5 Triglycerides 231 H Cholesterol 178 LDL Cholesterol, Calc 109 HDL Cholesterol 23 L Cholesterol/HDL Ratio 7.7 H TSH 1.95 Ur Collection Type Clean Catch Urine Color Yellow Urine Clarity Clear Urine pH 6.5 Ur Specific [place] 1.031 Urine Protein 2+ A Urine Glucose (UA) Negative Urine Ketones Negative Urine Blood Negative Urine Nitrite Negative Urine Bilirubin 1+ A Urine Urobilinogen (Auto) 3.0 Ur Leukocyte Esterase Negative Urine RBC 7 H Urine WBC 8 H Ur Squamous Epith Cells < 1 Urine Bacteria None Hyaline Casts < 1 Quality Measures Quality Measures none Advance care planning discussed with:: patient and spouse Assessment & Plan Assessment Current Active Medications: Generic Name Dose Route Start Last Admin Trade Name Freq PRN Reason Stop Dose Admin Acetaminophen 650 mg 06/16/24 02:36 Acetaminophen 325 Mg Tablet PO 07/16/24 02:35 Q6H PRN Pain (1-3) and Fever >100.3 Diltiazem HCl 125 mg/ Dextrose 125 mls @ 5 mls/hr 06/15/24 20:15 06/15/24 20:27 IV 07/15/24 20:14 5 mg/hr .Q24H PO 5 mls/hr Administration 5 MG/HR Ondansetron HCl 4 mg 06/16/24 02:36 Ondansetron Inj 2 Mg/Ml Inj 2 Ml IV 07/16/24 02:35 Q6H PRN NAUSEA OR VOMITING Protocol Plan In summary: 69-year-old male with PMHx of hepatocellular cancer s/p liver transplant 5 weeks ago at [facility], HTN, GERD, A-fib, presented right-sided chest pain, admitted for symptomatic A-fib with RVR as seen on EKG. Previously on DILTIAZEM drip, now on METOPROLOL 100 XL, AMIODARONE drip, and ELIQUIS per cardiology team, recommendations appreciated. # Atrial fibrillation with RVR # History of A-fib Presented with persistent right-sided chest pain, EKG showed A-fib with RVR, HR 140s. Patient started on DILTIAZEM drip. Currently continued on DILTIAZEM drip, heart rate 85?120s, patient asymptomatic. Patient has a 4-year history of A-fib previously on CARVEDILOL 12.5 mg and ELIQUIS. Records from [facility] transplant team will obtain. Transplant was done on 05/11/2024. During that admission, patient had A-fib with RVR which was managed with AMIODARONE. At the time, CARVEDILOL, ELIQUIS and ASPIRIN were held perioperatively. Patient was to resume these medications after discharge under PCP supervision however patient did not follow-up. He presented to the ED 2 weeks ago with similar symptoms of A-fib with RVR and was discharged on METOPROLOL 50 mg, which patient currently taking. He has not resumed his ELIQUIS or ASPIRIN. Echocardiogram was done at [facility] on 05/17 showing EF 60 to 65%, severe LA enlargement, moderate RA and RV enlargement, and impaired RV relaxation. Cath was done on 04/18 showing 40-50% lesion in mid LAD, circumflex and RCA and mid RCA. Spoke with the transplant team, Nany Wolfe NP, who stated patient is okay to restart ELIQUIS and ASPIRIN from their standpoint. Will resume immunosuppressive medications as prescribed. Of note: Transplant team advised decreasing TACROLIMUS dose if patient to remain on DILTIAZEM. I have communicated this concern with our cardiology team. PLAN ? Started AMIODARONE drip per protocol ? Started METOPROLOL 100 XL daily ? Discontinued DILTIAZEM drip (to be stopped 1 hour after staring METOPROLOL) ? Resumed home ELIQUIS 5 mg daily ? Resumed home ASPIRIN 81 mg daily ? Echo pending ? Telemetry ? Replete magnesium, potassium as needed ? Continue MAGNESIUM OXIDE 800 mg HS # Hyperlipidemia Repeat lipid panel this visit: TG 231, cholesterol 178, LDL 109 Not currently on lipid modulators ? Follow-up with transplant team regarding hyperlipidemia # History of liver cirrhosis # History of liver CA # S/p liver transplant 5 weeks ago The patient has a history of liver cirrhosis and consequent liver cancer about 5 weeks ago had a liver transplant done in [facility]. Currently denies abdominal pain, however has mild jaundice and scleral icterus on exam. Admission total bilirubin 2.5, improved to 1.8. Patient follows up with [facility] transplant regularly, last visit 2 weeks ago. Immunosuppressive medications are managed by [facility] team, patient received his daily medications today, will resume medications Pharmacy will restart home meds, appreciate help. ? Continue disown 5 mg daily ? Continue MYCOPHENOLATE 250 mg 4 tablets daily ? Continue TACROLIMUS 1.5 mg daily AM ? Continue TACROLIMUS 2 mg daily PM ? Continue MAVYRET 100/40 mg TID daily with food ? Continue VALGANCICLOVIR for 50 mg daily ? Continue ENTECAVIR 0.5 mg daily ? Continue BACTRIM 800/160 mg 1 tablet Saturday, Saturday, and Saturday # Hypothyroidism Repeat TSH 1.95 this visit. ? Resumed home LEVOTHYROXINE 25 mg ACBR # Normocytic anemia Hgb 9.2, 11.1 on previous admission from 05/30 No signs of active bleeding including GI bleed Possibly related to liver transplant Coags within normal limits ? Daily CBC # Mild isotonic hyponatremia ? resolved # Hypomagnesemia ? resolved Admitting sodium 134, currently 137 Admitting magnesium 1.5, s/p IV mag 4 mg, currently 2.4 ? Daily CMP ? Replete lites as needed # History of hypertension History of hypertension, currently not on medications BP 115/78 ? Start ANTIHYPERTENSIVE as indicated ? Telemetry Health maintenance Diet: Cardiac GI prophylaxis: PROTONIX DVT prophylaxis: SCDs, ambulation Antibiotics: Not indicated CODE STATUS: Full code Disposition: Pending cardiology recommendations, appreciated Patient case was discussed with attending, Dr. Tona Mata DO and senior residents Dr. Downey and Dr. Kirk. Augusto Galeana DO PGYI Attending Provider Attestation/Addendum I, Yana Mata DO, attest that I was physically present for the jean portions of the service and evaluated the patient with the resident and I reviewed and discussed the case with the resident and agree with the resident's findings and plans of care as documented above Patient seen and evaluated this AM. Patient's was able to provide [facility] transplant hepatology contact information. Patient stated that he had chest pain upon arrival and lightheadedness due to afib with RVR, but has since resolved. Patient has no acute complaints at this time. Patient has not had the chance to f/u with his form worker outpt until Jul. PGY1 Dr. Galeana was able to speak with transplant team. Patient OK to restart Eliquis and aspirin for afib. Pt currently on cardizem drip with improvement of rate control. Will start patient back on eliquis, metoprol XL 100mg PO daily and amiodarone drip, DC cardizem drip as per cardiology recommendations. Will also restart patient's immunosuppressive therapy and prophylactic antibiotics for recent liver transplant.
--- NOTE | 2024-06-16 09:42 | PD.RESCONSUL ---
HPI Data of Consult Requesting Physician: Yana Mata DO Admitting Provider: Philip Falk MD Attending Provider: Yana Mata DO Primary Care Provider: Jose Allen MD Consult Narrative Reason for consult: A-fib with RVR and chest pain History of present illness: 69-year-old male with past medical history of liver cancer/cirrhosis status post liver transplant on April 15, 2024 on [facility], ESRD status post kidney transplant on April 15, 2024 at [facility], hypertension, GERD, and paroxysmal A-fib was admitted to hospital chest pain and A-fib with RVR. Patient was recently seen at [facility] ER for similar symptoms and was discharged as his chest pain resolved when he arrived. On this admission patient presented to the ER with chest pain that started 1 hour before arriving to the ER and was still present on his arrival. At this time he described the pain as aching. In the ED patient had an EKG done which showed A-fib with RVR and he was given 1 dose of diltiazem 50 mg and started on diltiazem drip. Initially patient was tachycardic with heart rates in the 150s, normotensive (lower end 100s over 60s), and saturating well on room air. Initial labs showed hemoglobin of 10.4, sodium 134, potassium 4.5, bicarb 17.9, BUN 17, creatinine 1.2, magnesium 1.5, T bilirubin 2.5, troponins 0.02, and BNP 346. Initial imaging included chest x-ray which was unremarkable and EKG which showed A-fib with RVR. Patient has a past echo from 03/02/2024 with the following findings: Normal LV size and function. Diastolic cannot be determined due to AFib. Estimated EF 55-60% Mild RV dilatation. Estimated RVSP 37mmHg. Mild RA dilatation. Mild MR, PI. Moderate TR. IVC not well visualized. During my assessment patient stated that since he got the liver and kidney transplant at [facility] on April 15, 2024 he has been having on and off chest pain pressure-like in nature and describes it with a Dominguez's sign. He states that this chest pain normally lasts more than 30 minutes and can last up to 45 minutes and he sometimes gets relief with leaning forward. His pain is not reproducible with palpation and he states that it radiates to his left underarm, but does not radiate to his back. He mentioned that he also had a headache with palpitations yesterday when he experienced his chest pain and his palpitation has been present since prior to yesterday's presentation. On his last ER visit he stated that his chest pain was about the same as this time, but after he was given some medication in the ambulance his chest pain was relieved. Patient states that he was supposed to see a early childhood assistant in [place], but never got the chance to go as it is too far for him. He denies any dizziness, shortness of breath, lower extremity swelling, nausea, or vomiting. Patient states that after he got the transplant he was taken off his carvedilol, Eliquis, and aspirin. Of note, patient was also seen on 03/04/2024 due to hepatic encephalopathy as well as hyperkalemia and he had A-fib with controlled ventricular rate at this time. Today's labs showed hemoglobin 9.2, sodium 137, potassium 3.9, bicarb 21.7, BUN 13, creatinine 0.8, magnesium 2.4, T bilirubin 1.8, triglycerides 231, and HDL 23. Currently this morning his heart rate has been in the 140-101 and overnight it was well-controlled in the 90s. Patient's blood pressure has been on the softer side since admission with 100s over 60s. Cardiology was consulted for A-fib with RVR. PMH:liver cancer/cirrhosis status post liver transplant on April 15, 2024 on [facility], ESRD status post kidney transplant on April 15, 2024 at [facility], hypertension, GERD, and paroxysmal A-fib Social Hx: Past smoker (quit 10 years ago), past alcohol use (quit 10 years ago), denies any illicit drugs FMH: Dad at 66-67 from heart issues (patient was not able to specify if it was an AL), mother had cirrhosis, brother from a stroke at 64, sisters have high blood pressure and diabetes. 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 cc:: cc: Yana Mata, Review of Systems Constitutional Comments: Constitutional: Denies sweats, Denies weight loss/gain, Denies fever, Denies chills. HEENT: Denies hearing loss, Denies ear pain, Denies postnasal drip, Denies double vision, Denies blurry vision. Respiratory: Denies shortness of breath, Denies cough, Denies wheezing. Cardiovascular: Admits chest pain, Admits palpitations, Denies sudden loss of consciousness. GI: Denies blood in stool, Denies constipation, Denies abdominal pain, Denies difficulty swallowing, Denies nausea or vomit. : Denies urinary incontinence, Denies pain while urinating, Denies increased urinary frequency. MSK: Denies joint pain, Denies joint swelling, Denies numbness. Skin: Denies rash, Denies itching, Denies easy bruising. Neuro: Denies headaches, Denies dizziness, Denies seizures. Past Medical History Past Medical History Comments PMH COMMENT: PMH:liver cancer/cirrhosis status post liver transplant on April 15, 2024 on [facility], ESRD status post kidney transplant on April 15, 2024 at [facility], hypertension, GERD, and paroxysmal A-fib Social Hx: Past smoker (quit 10 years ago), past alcohol use (quit 10 years ago), denies any illicit drugs FMH: Dad at 66-67 from heart issues (patient was not able to specify if it was an AL), mother had cirrhosis, brother from a stroke at 64, sisters have high blood pressure and diabetes. 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 Exam Vital Signs Temp Pulse Resp BP Pulse Ox O2 Del Method 97.4 F 101 H 23 H 107/79 98 Room Air 06/16/24 08:00 06/16/24 08:00 06/16/24 08:00 06/16/24 08:00 06/16/24 08:00 06/16/24 08:00 Narrative Exam General: A/O x3, no acute distress, well-nourished, well-developed Eyes: PERRL, EOMI. Anicteric, vision grossly intact. Ears: No ear pain, no ear discharge, Hearing grossly intact. Nose: No nasal discharge. Mouth/Throat: Dry mucous membranes, missing teeth, no redness, no lesions. Neck: Neck supple, non-tender, no cervical lymphadenopathy. Lungs: Clear TR to auscultation and percussion, No accessory muscle use. Cardio: Normal S1/S2, regular rhythm, no murmurs, no JVD or carotid bruits. Abdomen: Soft, non-tender, no palpable masses, peristalsis present, no guarding or rebound. Extremities: Symmetrical, no significant deformities, no peripheral edema , non-tender, peripheral pulses presents. Skin: No rashes, no lesions, warm to touch. clean surgical scar along the R-side abdomen and extending across the upper abdomen all the way below the left rib cage. Neuro: No focal neurological deficits. motor and sensory intact. Psych: Cooperative, appropriate mood and effect. Results Labs 06/16/24 05:31 06/16/24 05:31 Labs: Short CBC 06/15/24 06/16/24 Range/Units 20:05 05:31 WBC 8.1 4.9 (3.8-10.6) Thou/mm3 Hgb 10.4 L 9.2 L (13.5-16.0) g/dL Hct 30.8 L 27.4 L (41.0-53.0) % Plt Count 378 D 288 D (140-440) Thou/mm3 BMP 06/15/24 06/16/24 20:05 05:31 Sodium 134 L 137 Potassium 4.5 3.9 D Chloride 101 105 Carbon Dioxide 17.9 L 21.7 BUN 17 13 Creatinine 1.2 0.8 Glucose 200 H 110 H D Calcium 9.3 8.8 Cardiac Enzymes 06/15/24 Range/Units 20:05 Troponin I < 0.020 (0.0-0.045) ng/mL Liver Function 06/15/24 06/16/24 Range/Units 20:05 05:31 Total Bilirubin 2.5 H 1.8 H D (0.3-1.2) mg/dL AST 18 < 10 (0-34) U/L ALT 10 12 (10-49) U/L Alkaline Phosphatase 126 H 103 D (46-116) U/L Albumin 4.3 3.7 D (3.4-4.8) gm/dL Urine 06/15/24 Range/Units 21:03 Urine Color Yellow (Lt Yel-Yel) Urine Clarity Clear (Clear/Hazy) Urine pH 6.5 (5.0-7.0) Ur Specific Stigler 1.031 (1.001-1.035) Urine Protein 2+ A (Neg - Trace) Urine Glucose (UA) Negative (Negative) Quality Measures Quality Measures none Advance care planning discussed with:: patient Medications Home Medications and Allergies Home Medications ?Medication ?Instructions ?Recorded ?Confirmed ?Type apixaban 5 mg tablet (Eliquis) 5 mg PO QDAY 02/13/24 03/02/24 History lenvatinib 12 mg/day (4 mg x 3) 12 mg PO QDAY 02/13/24 03/02/24 History capsule (Lenvima) ondansetron 4 mg disintegrating 4 mg PO PRN PRN Vomiting 02/13/24 03/02/24 History tablet acetaminophen 500 mg tablet 500 mg PO Q6H PRN Pain, Mild 06/16/24 06/16/24 History aspirin 81 mg tablet,delayed 81 mg PO QAM 06/16/24 06/16/24 History release docusate sodium 100 mg capsule 100 mg PO BID 06/16/24 06/16/24 History entecavir 0.5 mg tablet 0.5 mg PO QAMAC 06/16/24 06/16/24 History ergocalciferol (vitamin D2) 1,250 50,000 unit PO QWEEK 06/16/24 06/16/24 History mcg (50,000 unit) capsule glecaprevir 100 mg-pibrentasvir 40 3 tab PO DAILY 06/16/24 06/16/24 History mg tablet (Mavyret) levothyroxine 25 mcg tablet 25 mcg PO QAMAC 06/16/24 06/16/24 History magnesium oxide 400 mg (241.3 mg 800 mg PO HS 06/16/24 06/16/24 History magnesium) tablet mycophenolate mofetil 250 mg 1,000 mg PO BID 06/16/24 06/16/24 History capsule omeprazole 20 mg capsule,delayed 20 mg PO QAM 06/16/24 06/16/24 History release oxycodone 5 mg tablet 2.5 mg PO Q12H PRN Pain, Severe 06/16/24 06/16/24 History prednisone 5 mg tablet 5 mg PO QAM 06/16/24 06/16/24 History sennosides 8.6 mg tablet (senna) 17.2 mg PO HS PRN Constipation 06/16/24 06/16/24 History sulfamethoxazole 800 1 tab PO MWF 06/16/24 06/16/24 History mg-trimethoprim 160 mg tablet tacrolimus 0.5 mg capsule, 0.5 mg PO QAM 06/16/24 06/16/24 History immediate-release tacrolimus 1 mg capsule, 1 mg PO HS 06/16/24 06/16/24 History immediate-release valganciclovir 450 mg tablet 900 mg PO DAILY 06/16/24 06/16/24 History Allergies Allergy/AdvReac Type Severity Reaction Status Date / Time No Known Allergies Allergy Verified 04/03/24 17:53 Visit Medications Acetaminophen (Acetaminophen 325 Mg Tablet) 650 mg PO Q6H PRN PRN Reason: Pain (1-3) and Fever >100.3 Stop: 07/16/24 02:35 Aspirin (Aspirin Ec 81 Mg Tabec) 81 mg PO QDAY [facility] Stop: 07/16/24 09:44 Diltiazem HCl 125 mg/ Dextrose 125 mls @ 5 mls/hr IV .Q24H PO Stop: 07/15/24 20:14 Last Admin: 06/15/24 20:27 Dose: 5 mg/hr, 5 mls/hr Levothyroxine Sodium (Levothyroxine Sodium 25 Mcg Tablet) 25 mcg PO ACBR PO Stop: 07/17/24 05:59 Magnesium Oxide (Magnesium Oxide 400 Mg Tablet) 800 mg PO HS [facility] Stop: 07/16/24 20:59 Ondansetron HCl (Ondansetron Inj 2 Mg/Ml Inj 2 Ml) 4 mg IV Q6H PRN; Protocol PRN Reason: NAUSEA OR VOMITING Stop: 07/16/24 02:35 Pantoprazole Sodium (Pantoprazole 20 Mg Tablet) 20 mg PO QDAY [facility] Stop: 07/16/24 09:44 Prednisone (Prednisone 5 Mg Tablet) 5 mg PO QDAY [facility] Stop: 07/16/24 09:29 Sennosides (Senna Tablet) 1 tab PO QDAY PRN; Protocol PRN Reason: CONSTIPATION Stop: 07/16/24 09:33 Discontinued Medications Diltiazem HCl (Diltiazem Inj 5 Mg/Ml Vial 5 Ml) 15 mg IV X1 ONE Stop: 06/15/24 19:56 Last Admin: 06/15/24 19:58 Dose: 15 mg Sodium Chloride (Ns) 1,000 mls @ 999 mls/hr IV .Q1H1M ONE Stop: 06/15/24 20:55 Last Infusion: 06/15/24 21:01 Dose: Infused Diltiazem HCl 125 mg/ Dextrose 125 mls @ 5 mls/hr IV .Q24H PO Stop: 07/15/24 20:00 Last Admin: 06/15/24 20:12 Dose: Not Given Magnesium Sulfate (Magnesium Sulfate Ivpb) 2 gm in 50 mls @ 25 mls/hr IV X1 ONE Stop: 06/16/24 02:30 Last Infusion: 06/16/24 02:48 Dose: Infused Magnesium Sulfate (Magnesium Sulfate Ivpb) 4 gm in 50 mls @ 12.5 mls/hr IV X1 ONE Stop: 06/16/24 06:39 Last Admin: 06/16/24 03:44 Dose: 12.5 mls/hr Assessment & Plan Plan 69-year-old male with past medical history of liver cancer/cirrhosis status post liver transplant on April 15, 2024 on [facility], ESRD status post kidney transplant on April 15, 2024 at [facility], hypertension, GERD, and paroxysmal A-fib was admitted to hospital chest pain and A-fib with RVR. 1. A-fib with RVR 2. Typical chest pain 3. Essential hypertension ?Patient has a history of paroxysmal A-fib and came in with complaints of chest pain pressure-like in nature and described with Dominguez sign and lasting for 30 to 45 minutes. ?He was taken off his Eliquis after his liver and kidney transplant ?EKG overnight showed A-fib with RVR ?Patient's heart rate overnight and this morning has been in the 90s to low 100s ?Patient blood pressure has been on the lower end since admission being in the 100 over 60s ?It is very unlikely that patient did not have cardiac workup which could have included heart cath or stress test before transplant, therefore suspicion for acute coronary syndrome is low. ?Patient is currently asymptomatic -Patient has a past echo from 03/02/2024 with the following findings: Normal LV size and function. Diastolic cannot be determined due to AFib. Estimated EF 55-60% Mild RV dilatation. Estimated RVSP 37mmHg. Mild RA dilatation. Mild MR, PI. Moderate TR. IVC not well visualized. -Please obtain records from the renal transplant workup which will generally include echo, stress test as well as a cardiac catheterization given his age is also greater than 60 years. ?Primary care team spoke with [facility] who stated that was okay to continue amiodarone and Eliquis at this time. Plan: ?Recommend to start metoprolol XL 100 daily and Amio drip. ?Stop diltiazem drip 1 hour after giving metoprolol XL 100 daily ? Recommend to restart patient's Eliquis 5 mg twice daily ?Recommend to keep patient's blood pressure in the 100s to 120s systolic as patient had kidney transplant ?Recommend aggressive repletion of potassium and magnesium to keep above 4 and 2 respectively to avoid any arrhythmias ?Recommend to continues patient's levothyroxine ?Recommend to contact [facility] for better history of what medications patient should be on. 4. Normocytic normochromic anemia ?Patient's baseline hemoglobin on 03/04/2024 was 14.5 and was 11 afterwards on last ER visit on 05/30/2024 ?Today's hemoglobin was 9.2 which dropped from 10.4 from admission ?This could be likely due to hemodilution versus iron deficiency anemia versus chronic disease Plan: ?Recommend iron panel and ferritin ? Continue current management as per primary care team 5. Hypertriglyceridemia ?Patient's triglycerides on admission were 231 ?Stress of cholesterol panel was cholesterol 178, LDL 109, HDL 23 ?Recommend to hold statins or fibrate's for now as patient recently had liver transplant ?Continue current management as per primary care team 6. Hyperbilirubinemia ?Patient has a chronically elevated T bilirubin likely from his liver disease ?Patient came in with bilirubin of 2.4 and down trended to 1.8 today ?Continue current management as per primary care team 7. Hx of liver cancer s/p liver transplant 8. Hx of ESRD s/p kidney transplant ?Patient recently had a liver and kidney transplant at [facility] on April 15, 2024 ? BUN 13 and creatinine 0.8 today ? AST less than 10 and ALT 12 and alkaline phosphatase 103 ?Recommend to avoid any hepatotoxic or nephrotoxic agents ?Recommend to renally dose medications ?Continue current management as per primary care team 9. Hx of GERD ? Recommend to continue Protonix ? Continue current management as per primary care team Continue rest of management as per primary team. We are grateful to be able to participate in Mr. Lam's care. Thank you for the consult Plan of care discussed with attending Transit Planner, Dr Barbara Sainz MD PGY-1 Attending Provider Attestation/Addendum I have personally seen and examined the patient separately on the above date of service and discussed the plan of care with the resident. I reviewed the resident Dr. Kern consultation progress note and agree with the resident findings and plan in the note above and have also edited the documentation to reflect my findings and plan. Carlos Jimenez M.D. Interventional Cardiology
[2024-06-16] MEDS: ASPIRIN EC 81 MG TABEC PO (11:44)
[2024-06-16] MEDS: predniSONE 5 MG TABLET PO (11:44)
[2024-06-16] MEDS: PANTOPRAZOLE 20 MG TABLET PO (11:44)
[2024-06-16 14:45] LABS: Total Iron Binding Capacity 207 mcg/dL (250-425)
[2024-06-16 14:55] LABS: Iron 27 mcg/dL (65-175); Percent Iron Saturation 13 % (20-55); Unsaturated Iron Binding 180 (225-295)
[2024-06-16] MEDS: METOPROLOL SUCCINATE XL 25 MG TABCR 100 MG PO (17:42)
[2024-06-16] MEDS: AMIODARONE 150 MG IVPB 150 MG/100 ML BAG 600 MG IV (17:43)
[2024-06-16] MEDS: AMIODARONE 360 MG IVPB 360 MG/200 ML BAG 33.333 MG IV (17:54)
[2024-06-16] MEDS: DOCUSATE SOD 100 MG CAPSULE PO (20:29)
[2024-06-16] MEDS: MAGNESIUM OXIDE 400 MG TABLET 800 MG PO (20:29)
[2024-06-16] MEDS: MYCOPHENOLATE 250 MG CAPSULE (NON-FORMULARY) 1000 MG PO (20:29)
[2024-06-16] MEDS: TACROLIMUS 1 MG CAPSULE (NON-FORMULARY) PO (20:30)
--- NOTE | 2024-06-16 20:34 | PC.NURSE ---
pt refused eliquis because he stated my dr in [place] took me off this some time ago because of the transplants and bleeding, I would rather wait till he puts me back on before I take it DR notified
[2024-06-16] MEDS: AMIODARONE 360 MG IVPB 360 MG/200 ML BAG 16.667 MG IV (23:55)
[2024-06-17] VITALS (10 sets, daily range): BP systolic 110–133; BP diastolic 63–82; PULSE 65–76; RESP 14–98; TEMP 36.3–36.9; O2SAT 98–100
[2024-06-17 05:54] LABS: Basophils # (Auto) 0.1 Thou/mm3 (0.0-0.2); Basophils % (Auto) 2 % (0-2.5); Eosinophils # (Auto) 0.6 Thou/mm3 (0.0-0.5); Eosinophils % (Auto) 14 % (0-10); Immature Granulocytes % (Auto) 0 % (0-0); Immature Granulocytes Auto 0.02 Thou/mm3 (0.00-0.00); Lymphocytes # (Auto) 0.4 Thou/mm3 (1.0-4.8); Lymphocytes % (Auto) 8 % (10-50); Mean Corpuscular HGB Conc 33.8 g/dl (31.0-37.0); Mean Corpuscular Hemoglobin 31.3 pg (25.0-35.0); Mean Corpuscular Volume 93 fL (80-100); Monocytes # (Auto) 0.4 Thou/mm3 (0.0-0.8); Monocytes % (Auto) 9 % (0-12); Neutrophils % (Auto) 67 % (37-80); Nucleated Red Blood Cell % 0 /100 WBC (0); Platelet Count 302 Thou/mm3 (140-440); Red Blood Count 2.81 Miln/mm3 (4.50-5.90); White Blood Count 4.5 Thou/mm3 (3.8-10.6)
[2024-06-17] MEDS: LEVOTHYROXINE SODIUM 25 MCG TABLET PO (05:57)
[2024-06-17 06:05] LABS: Hemoglobin 8.8 g/dL (13.5-16.0)
[2024-06-17 06:35] LABS: Alanine Aminotransferase 11 U/L (10-49); Albumin, Serum 3.6 gm/dL (3.4-4.8); Albumin/Globulin Ratio 1.4 (1.2-2.2); Alkaline Phosphatase 106 U/L (46-116); Anion Gap 9 (7-16); Aspartate Amino Transferase < 10 U/L (0-34); BUN/Creatinine Ratio 16 Ratio (12-20); Bilirubin,Total 1.9 mg/dL (0.3-1.2); Blood Urea Nitrogen 14 mg/dL (9-23); Calcium 8.9 mg/dL (8.3-10.6); Calcium (Corrected) 9.2 mg/dL (8.5-10.1); Carbon Dioxide 23.3 mMol/L (20.0-31.0); Chloride 103 mMol/L (98-107); Creatinine (Component) 0.9 mg/dL (0.6-1.3); Globulin 2.5 gm/dL (2.3-3.5); Glucose 111 mg/dL (74-106); Magnesium 2.1 mg/dL (1.6-2.6); Osmolality,Calculated 271 (275-295); Phosphorous 3.2 mg/dL (2.4-5.1); Potassium 3.8 mMol/L (3.4-5.1); Sodium 135 mMol/L (136-145); Total Protein 6.1 gm/dL (5.7-8.2); eGFR > 60 See Note
--- NOTE | 2024-06-17 08:25 | ESPR_ITS ---
Documentation for date of: 06/17/24 Subjective Subjective Interval history: Patient was seen and examined at bedside this morning. Overnight patient had no new arrhythmias and his heart rate was stable in the 60s to 70s. Patient last night refused Eliquis because he did not believe that his [facility] physician stated that he could be back on it. Spoke to the patient and clarified to him that primary care team spoke with [facility] physicians and they stated that it was okay to restart Eliquis and amiodarone at this time. Patient is appears rate controlled at this time and has no new cardiac complaints Potassium 3.8, magnesium 2.1, BUN 14, and creatinine 0.9 Recommend to aggressively replete potassium and magnesium to maintain above 4 and 2 respectively. Echo was read yesterday and had the following findings: Normal LV size and function. Cannot determine diastolic function due to afib. Estimated EF 60-65% Normal RV size and function. Mild MR, TR. Exam Vital Signs Temp Pulse Resp BP Pulse Ox O2 Del Method 97.5 F 73 19 133/80 H 100 Room Air 06/17/24 08:00 06/17/24 08:00 06/17/24 08:00 06/17/24 08:00 06/17/24 08:00 06/17/24 08:00 Narrative Exam General: A/O x3, no acute distress, well-nourished, well-developed Eyes: PERRL, EOMI. Anicteric, vision grossly intact. Ears: No ear pain, no ear discharge, Hearing grossly intact. Nose: No nasal discharge. Mouth/Throat: Dry mucous membranes, missing teeth, no redness, no lesions. Neck: Neck supple, non-tender, no cervical lymphadenopathy. Lungs: Clear TR to auscultation and percussion, No accessory muscle use. Cardio: Normal S1/S2, regular rhythm, no murmurs, no JVD or carotid bruits. Abdomen: Soft, non-tender, no palpable masses, peristalsis present, no guarding or rebound. Extremities: Symmetrical, no significant deformities, no peripheral edema , non-tender, peripheral pulses presents. Skin: No rashes, no lesions, warm to touch. clean surgical scar along the R-side abdomen and extending across the upper abdomen all the way below the left rib cage. Neuro: No focal neurological deficits. motor and sensory intact. Psych: Cooperative, appropriate mood and effect. Objective Labs 06/17/24 04:55 06/17/24 04:55 Labs: Laboratory Results - last 24 hr 06/16/24 06/17/24 05:37 04:55 WBC 4.5 RBC 2.81 L Hgb 8.8 L Hct 26.0 L MCV 93 MCH 31.3 MCHC 33.8 RDW Std Deviation 50.0 H Plt Count 302 Neut % (Auto) 67 Lymph % (Auto) 8 L [place] % (Auto) 9 Eos % (Auto) 14 H Baso % (Auto) 2 Neut # (Auto) 3.0 Lymph # (Auto) 0.4 L [place] # (Auto) 0.4 Eos # (Auto) 0.6 H Baso # (Auto) 0.1 Immature Gran # (Auto) 0.02 H Absolute Nucleated RBC 0.00 Immature Gran % 0 Nucleated RBC % 0 Sodium 135 L Potassium 3.8 Chloride 103 Carbon Dioxide 23.3 Anion Gap 9 BUN 14 Creatinine 0.9 Estim Creat Clear Calc Not Performed. eGFR > 60 BUN/Creatinine Ratio 16 Glucose 111 H Calculated Osmolality 271 L Calcium 8.9 Corrected Calcium 9.2 Phosphorus 3.2 Magnesium 2.1 Iron 27 L TIBC 207 L Iron Saturation 13 L Unsat Iron Binding 180 L Total Bilirubin 1.9 H AST < 10 ALT 11 Alkaline Phosphatase 106 Total Protein 6.1 Albumin 3.6 Globulin 2.5 Albumin/Globulin Ratio 1.4 Quality Measures Quality Measures none Advance care planning discussed with:: patient Assessment & Plan Assessment Current Active Medications: Generic Name Dose Route Start Last Admin Trade Name Freq PRN Reason Stop Dose Admin Acetaminophen 500 mg 06/16/24 16:33 Acetaminophen 500 Mg Tablet PO 07/16/24 16:32 Q6H PRN PAIN SCALE 1-3 (mild Acetaminophen 650 mg 06/16/24 16:50 Acetaminophen 325 Mg Tablet PO 07/16/24 02:35 Q6H PRN Fever >100.3 Apixaban 5 mg 06/16/24 21:00 06/16/24 20:34 Apixaban 2.5 Mg Tablet PO 07/16/24 20:59 Not Given BID PO Aspirin 81 mg 06/16/24 09:45 06/16/24 11:44 Aspirin Ec 81 Mg Tabec PO 07/16/24 09:44 81 mg QDAY PO Administration Valganciclovir 450 0 ea 12/04/24 09:00 Mg Tablet PO 07/17/24 08:59 DAILY PO Entecavir 0.5 Mg 0 ea 06/17/24 09:00 Tablet PO 07/17/24 08:59 DAILY PO Mavyret (Glecaprevir 0 ea 06/17/24 09:00 And Pibrentasvir PO 07/17/24 08:59 100 Mg/400 Mg Tablet DAILY PO ) Docusate Sodium 100 mg 06/16/24 21:00 06/16/24 20:29 Docusate Sod 100 Mg Capsule PO 07/16/24 20:59 100 mg BID PO Administration Protocol Ergocalciferol 50,000 unit 06/23/24 09:00 Ergocalciferol (Vit D2) 50,000 Unit Cap (Non-Formulary) PO 07/23/24 08:59 QWEEK PO Amiodarone HCl/Dextrose 360 mg in 200 mls @ 16.667 mls/hr 06/16/24 23:32 06/16/24 23:55 Nexterone Ivpb IV 06/17/24 23:31 16.667 mls/hr .Q12H PO Administration Levothyroxine Sodium 25 mcg 06/17/24 06:00 06/17/24 05:57 Levothyroxine Sodium 25 Mcg Tablet PO 07/17/24 05:59 25 mcg ACBR PO Administration Magnesium Oxide 800 mg 06/16/24 21:00 06/16/24 20:29 Magnesium Oxide 400 Mg Tablet PO 07/16/24 20:59 800 mg HS PO Administration Metoprolol Succinate 100 mg 06/16/24 17:30 06/16/24 17:42 Metoprolol Succinate Xl 25 Mg Tabcr PO 07/16/24 17:29 100 mg QDAY PO Administration Mycophenolate Mofetil 1,000 mg 06/16/24 21:00 06/16/24 20:29 Mycophenolate 250 Mg Capsule (Non-Formulary) PO 07/16/24 20:59 1,000 mg BID PO Administration Ondansetron HCl 4 mg 06/16/24 02:36 Ondansetron Inj 2 Mg/Ml Inj 2 Ml IV 07/16/24 02:35 Q6H PRN NAUSEA OR VOMITING Protocol Pantoprazole Sodium 20 mg 06/16/24 09:45 06/16/24 11:44 Pantoprazole 20 Mg Tablet PO 07/16/24 09:44 20 mg QDAY PO Administration Prednisone 5 mg 06/16/24 09:30 06/16/24 11:44 Prednisone 5 Mg Tablet PO 07/16/24 09:29 5 mg QDAY PO Administration Sennosides 1 tab 06/16/24 09:34 Senna Tablet PO 07/16/24 09:33 QDAY PRN CONSTIPATION Protocol Tacrolimus 1 mg 06/16/24 21:00 06/16/24 20:30 Tacrolimus 1 Mg Capsule (Non-Formulary) PO 07/16/24 20:59 1 mg HS PO Administration Tacrolimus 0.5 mg 06/17/24 09:00 Tacrolimus 0.5 Mg Capsule (Non-Formulary) PO 07/17/24 08:59 QAM PO Trimethoprim/Sulfamethoxazole 1 tab 06/17/24 09:00 Trimethoprim/Sulfa 160/800 Ds Tablet PO 06/24/24 08:59 MoWeFr PO Plan 69-year-old male with past medical history of liver cancer/cirrhosis status post liver transplant on April 15, 2024 on [facility], ESRD status post kidney transplant on April 15, 2024 at [facility], hypertension, GERD, and paroxysmal A-fib was admitted to hospital chest pain and A-fib with RVR. 1. A-fib with RVR 2. Typical chest pain 3. Essential hypertension ?Patient has a history of paroxysmal A-fib and came in with complaints of chest pain pressure-like in nature and described with Dominguez sign and lasting for 30 to 45 minutes. ?He was taken off his Eliquis after his liver and kidney transplant ?EKG on admission showed A-fib with RVR ?It is very unlikely that patient did not have cardiac workup which could have included heart cath or stress test before transplant, therefore suspicion for acute coronary syndrome is low. ?Patient is currently asymptomatic ?Patient's heart rate overnight has been rate controlled and this morning has been in the 60-70s ?Patient blood pressure has been on the lower end since admission being in the 100 over 60s ?Echo from 06/16/2024 had the following findings: Normal LV size and function. Cannot deter/mine diastolic function due to afib. Estimated EF 60-65% Normal RV size and function. Mild MR, TR. -Patient has a past echo from 03/02/2024 with the following findings: Normal LV size and function. Diastolic cannot be determined due to AFib. Estimated EF 55-60% Mild RV dilatation. Estimated RVSP 37mmHg. Mild RA dilatation. Mild MR, PI. Moderate TR. IVC not well visualized. -Please obtain records from the renal transplant workup which will generally include echo, stress test as well as a cardiac catheterization given his age is also greater than 60 years. ?Primary care team spoke with [facility] who stated that was okay to continue amiodarone and Eliquis at this time. Plan: ?Recommend to continue metoprolol XL 100 daily -Discontinue Amio drip and start patient on amiodarone 200mg BID for 2 weeks then change to amiodarone 200mg qday. ?Recommend to continue patient's Eliquis 5 mg twice daily -F/U in 1 week with me or any other electronics technology department chair after D/C ?Recommend to keep patient's blood pressure in the 100s to 120s systolic as patient had kidney transplant ?Recommend aggressive repletion of potassium and magnesium to keep above 4 and 2 respectively to avoid any arrhythmias ?Recommend to continues patient's levothyroxine 4. Normocytic normochromic anemia ?Patient's baseline hemoglobin on 03/04/2024 was 14.5 and was 11 afterwards on last ER visit on 05/30/2024 ?Today's hemoglobin was 8.8 which dropped from 10.4 from admission ?This could be likely due to hemodilution versus iron deficiency anemia versus chronic disease Plan: ?Recommend ferritin levels as iron levels were low ?Continue current management as per primary care team 5. Hypertriglyceridemia ?Patient's triglycerides on admission were 231 ?Stress of cholesterol panel was cholesterol 178, LDL 109, HDL 23 ?Recommend to hold statins or fibrate's for now as patient recently had liver transplant ?Continue current management as per primary care team 6. Hyperbilirubinemia ?Patient has a chronically elevated T bilirubin likely from his liver disease ?Patient came in with bilirubin of 2.4 and down trended, currently 1.9 today ?Continue current management as per primary care team 7. Hx of liver cancer s/p liver transplant 8. Hx of ESRD s/p kidney transplant ?Patient recently had a liver and kidney transplant at [facility] on April 15, 2024 ? BUN 14 and creatinine 0.9 today ? AST less than 10 and ALT 11 and alkaline phosphatase 103 ?Recommend to avoid any hepatotoxic or nephrotoxic agents ?Recommend to renally dose medications ?Continue current management as per primary care team 9. Hx of GERD ? Recommend to continue Protonix ? Continue current management as per primary care team Continue rest of management as per primary team. We are grateful to be able to participate in Mr. Lam's care. Thank you for the consult Plan of care discussed with attending Cryptoanalysis Teacher, Dr Barbara Sainz MD PGY-1 Attending Provider Attestation/Addendum I have personally seen and examined the patient separately on the above date of service and discussed the plan of care with the resident. I reviewed the resident Dr. Kern consultation progress note and agree with the resident findings and plan in the note above and have also edited the documentation to reflect my findings and plan. Carlos Jimenez M.D. Interventional Cardiology
[2024-06-17] MEDS: DOCUSATE SOD 100 MG CAPSULE PO (09:26)
[2024-06-17] MEDS: MYCOPHENOLATE 250 MG CAPSULE (NON-FORMULARY) 1000 MG PO (09:26)
[2024-06-17] MEDS: ASPIRIN EC 81 MG TABEC PO (09:27)
[2024-06-17] MEDS: METOPROLOL SUCCINATE XL 25 MG TABCR 100 MG PO (09:27)
[2024-06-17] MEDS: TRIMETHOPRIM/SULFA 160/800 DS TABLET 1 TAB PO (09:27)
[2024-06-17] MEDS: PANTOPRAZOLE 20 MG TABLET PO (09:27)
[2024-06-17] MEDS: TACROLIMUS 0.5 MG CAPSULE (NON-FORMULARY) PO (09:28)
[2024-06-17] MEDS: predniSONE 5 MG TABLET PO (09:28)
[2024-06-17] MEDS: APIXABAN 2.5 MG TABLET 5 MG PO (09:28)
[2024-06-17] MEDS: VALGANCICLOVIR 450 MG TABLET PO (09:29)
[2024-06-17] MEDS: ENTECAVIR 0.5 MG TABLET PO (09:30)
[2024-06-17] MEDS: MAVYRET PO (09:31)
[2024-06-17] MEDS: AMIODARONE 360 MG IVPB 360 MG/200 ML BAG 16.667 MG IV (12:10)
--- NOTE | 2024-06-17 14:29 | PD.RESPRO ---
Documentation for date of: 06/17/24 Exam Vital Signs Temp Pulse Resp BP Pulse Ox O2 Del Method 98.0 F 70 17 128/82 99 Room Air 06/17/24 12:00 06/17/24 12:10 06/17/24 12:00 06/17/24 12:10 06/17/24 12:00 06/17/24 12:00 Objective Labs 06/17/24 04:55 06/17/24 04:55 Labs: Laboratory Results - last 24 hr 06/16/24 06/17/24 05:37 04:55 WBC 4.5 RBC 2.81 L Hgb 8.8 L Hct 26.0 L MCV 93 MCH 31.3 MCHC 33.8 RDW Std Deviation 50.0 H Plt Count 302 Neut % (Auto) 67 Lymph % (Auto) 8 L [place] % (Auto) 9 Eos % (Auto) 14 H Baso % (Auto) 2 Neut # (Auto) 3.0 Lymph # (Auto) 0.4 L [place] # (Auto) 0.4 Eos # (Auto) 0.6 H Baso # (Auto) 0.1 Immature Gran # (Auto) 0.02 H Absolute Nucleated RBC 0.00 Immature Gran % 0 Nucleated RBC % 0 Sodium 135 L Potassium 3.8 Chloride 103 Carbon Dioxide 23.3 Anion Gap 9 BUN 14 Creatinine 0.9 Estim Creat Clear Calc Not Performed. eGFR > 60 BUN/Creatinine Ratio 16 Glucose 111 H Calculated Osmolality 271 L Calcium 8.9 Corrected Calcium 9.2 Phosphorus 3.2 Magnesium 2.1 Iron 27 L TIBC 207 L Iron Saturation 13 L Unsat Iron Binding 180 L Total Bilirubin 1.9 H AST < 10 ALT 11 Alkaline Phosphatase 106 Total Protein 6.1 Albumin 3.6 Globulin 2.5 Albumin/Globulin Ratio 1.4 Quality Measures Quality Measures none Assessment & Plan Assessment Current Active Medications: Generic Name Dose Route Start Last Admin Trade Name Freq PRN Reason Stop Dose Admin Acetaminophen 500 mg 06/16/24 16:33 Acetaminophen 500 Mg Tablet PO 07/16/24 16:32 Q6H PRN PAIN SCALE 1-3 (mild Acetaminophen 650 mg 06/16/24 16:50 Acetaminophen 325 Mg Tablet PO 07/16/24 02:35 Q6H PRN Fever >100.3 Apixaban 5 mg 06/16/24 21:00 06/17/24 09:28 Apixaban 2.5 Mg Tablet PO 07/16/24 20:59 5 mg BID PO Administration Aspirin 81 mg 06/16/24 09:45 06/17/24 09:27 Aspirin Ec 81 Mg Tabec PO 07/16/24 09:44 81 mg QDAY PO Administration Valganciclovir 450 0 ea 06/17/24 09:00 06/17/24 09:29 Mg Tablet PO 07/17/24 08:59 1 tablet DAILY PO Administration Entecavir 0.5 Mg 0 ea 06/17/24 09:00 06/17/24 09:30 Tablet PO 07/17/24 08:59 1 tablet DAILY PO Administration Mavyret (Glecaprevir 0 ea 06/17/24 09:00 06/17/24 09:31 And Pibrentasvir PO 07/17/24 08:59 3 tablet 100 Mg/400 Mg Tablet DAILY PO Administration ) Docusate Sodium 100 mg 06/16/24 21:00 06/17/24 09:26 Docusate Sod 100 Mg Capsule PO 07/16/24 20:59 100 mg BID PO Administration Protocol Ergocalciferol 50,000 unit 06/23/24 09:00 Ergocalciferol (Vit D2) 50,000 Unit Cap (Non-Formulary) PO 07/23/24 08:59 QWEEK PO Amiodarone HCl/Dextrose 360 mg in 200 mls @ 16.667 mls/hr 06/16/24 23:32 06/17/24 12:10 Nexterone Ivpb IV 06/17/24 23:31 16.667 mls/hr .Q12H PO Administration Levothyroxine Sodium 25 mcg 06/17/24 06:00 06/17/24 05:57 Levothyroxine Sodium 25 Mcg Tablet PO 07/17/24 05:59 25 mcg ACBR PO Administration Magnesium Oxide 800 mg 06/16/24 21:00 06/16/24 20:29 Magnesium Oxide 400 Mg Tablet PO 07/16/24 20:59 800 mg HS PO Administration Metoprolol Succinate 100 mg 06/16/24 17:30 06/17/24 09:27 Metoprolol Succinate Xl 25 Mg Tabcr PO 07/16/24 17:29 100 mg QDAY PO Administration Mycophenolate Mofetil 1,000 mg 06/16/24 21:00 06/17/24 09:26 Mycophenolate 250 Mg Capsule (Non-Formulary) PO 07/16/24 20:59 1,000 mg BID PO Administration Ondansetron HCl 4 mg 06/16/24 02:36 Ondansetron Inj 2 Mg/Ml Inj 2 Ml IV 07/16/24 02:35 Q6H PRN NAUSEA OR VOMITING Protocol Pantoprazole Sodium 20 mg 06/16/24 09:45 06/17/24 09:27 Pantoprazole 20 Mg Tablet PO 07/16/24 09:44 20 mg QDAY PO Administration Prednisone 5 mg 06/16/24 09:30 06/17/24 09:28 Prednisone 5 Mg Tablet PO 07/16/24 09:29 5 mg QDAY PO Administration Sennosides 1 tab 06/16/24 09:34 Senna Tablet PO 07/16/24 09:33 QDAY PRN CONSTIPATION Protocol Tacrolimus 1 mg 06/16/24 21:00 06/16/24 20:30 Tacrolimus 1 Mg Capsule (Non-Formulary) PO 07/16/24 20:59 1 mg HS PO Administration Tacrolimus 0.5 mg 06/17/24 09:00 06/17/24 09:28 Tacrolimus 0.5 Mg Capsule (Non-Formulary) PO 07/17/24 08:59 0.5 mg QAM PO Administration Trimethoprim/Sulfamethoxazole 1 tab 06/17/24 09:00 06/17/24 09:27 Trimethoprim/Sulfa 160/800 Ds Tablet PO 06/24/24 08:59 1 tab MoWeFr PO Administration
--- NOTE | 2024-06-17 15:26 | PC.SS ---
Patient is alert/oriented. Patient admitted for atrial fib. Patient lives with and son. Independent with ADL's. Patient states he follows at [facility] and last appt. was 4 months ago. Patient states he also follows at [facility] for liver transplant workup. His last appt. was last week. Patient states he does not see any other specialty physician's. He states his daughter, Kelly, is his alt medical decision maker and point of contact. D/c plan is to return home.
[2024-06-17] MEDS: AMIODARONE HCL 200 MG TABLET PO (17:29)
--- NOTE | 2024-06-17 18:01 | ESDS_ITS ---
<Statement entered by Jagjit Kirk MD - 06/18/24 08:18> Patient was examined with the team including attending physician. Note reviewed, I agree with the discharge plan as documented. - Jagjit Kirk MD, PGY 2 Planned Discharge Date 06/17/24 DS: Providers Provider Date of admission: 06/16/24 02:36 Primary care physician: Jose Allen MD Admitting Provider: Philip Falk MD Attending Provider on Admission: Moi Townsend MD Consults: 06/16/24 07:46 Consult to Cardiology Routine Comment: Consulting Provider: Carlos Jimenez Attending Provider on DC: Moi Townsend MD Discharging Provider: Moi Townsend MD DS: Diagnosis Problem List Completed Was Problem List Reviewed/Reconciled?: Yes Hospital Course Hospital Course Hospital course: Is a 61-year-old male with PMHx of liver cancer, cirrhosis, recent liver transplant, hypertension, GERD, A-fib, presented on 06/15/2024 with right-sided chest pain, admitted for A-fib with RVR as seen on EKG. He was coordinated with transplant team at [facility], who also stated patient had A-fib with RVR during his transplant stay at [facility]. Patient stopped taking ELIQUIS and BETA-BLOCKERS after discharging from [facility], was supposed to have an appointment with his conference services coordinator which he scheduled for September 2024. Initially we started patient on AMIODARONE drip, heart rate and rhythm controlled. Cardiology was consulted who recommended discharge on AMIODARONE 200 mg BID for 2 weeks then 200 mg daily after that. Patient also will continue METOPROLOL 100 mg daily. He will continue with ELIQUIS 5 mg BID and ASPIRIN 81 mg daily. During the stay, all prescribed immunosuppressive's were continued, [facility] transplant team was okay with us restarting ELIQUIS and ASPIRIN Patient will follow-up with cardiology within 1 week of discharge. She was stable at the time of discharge, without chest pain or palpitation. PATIENT INSTRUCTIONS: ? Follow-up with cardiology, Dr. Jimenez within 1 week of discharge ? Continue taking ELIQUIS 5 mg twice daily ? Continue taking ASPIRIN 81 mg daily ? Continue taking AMIODARONE 200 mg twice daily for 2 weeks, then once daily after that ? Continue METOPROLOL 100 mg daily ? Continue all other medications as prescribed by your transplant team ? Return to ED if symptoms worsen, persist or new symptoms develop Admission diagnoses: # Atrial fibrillation with RVR # History of A-fib # Hyperlipidemia # Hypothyroidism # Normocytic anemia # Mild isotonic hyponatremia ? resolved # Hypomagnesemia ? resolved # History of hypertension Patient case was discussed with attending, Dr. Kristian DUFFY and senior residents Dr. Downey and Dr. Kirk. Augusto Galeana DO PGYI Time Spent with Patient Time attestation: Total time spent providing and/or coordinating discharge services: Exam Vital Signs Temp Pulse Resp BP Pulse Ox O2 Del Method 98.4 F 68 20 125/80 99 Room Air 06/17/24 16:00 06/17/24 17:29 06/17/24 16:09 06/17/24 17:29 06/17/24 16:00 06/17/24 16:00 Narrative Exam General: A/O x3, no acute distress, well-nourished, well-developed Eyes: PERRL, EOMI. Anicteric, vision grossly intact. Ears: No ear pain, no ear discharge, Hearing grossly intact. Nose: No nasal discharge. Mouth/Throat: Dry mucous membranes, missing teeth, no redness, no lesions. Neck: Neck supple, non-tender, no cervical lymphadenopathy. Lungs: Clear TR to auscultation and percussion, No accessory muscle use. Cardio: Normal S1/S2, regular rhythm, no murmurs, no JVD or carotid bruits. Abdomen: Soft, non-tender, no palpable masses, peristalsis present, no guarding or rebound. Extremities: Symmetrical, no significant deformities, no peripheral edema , non-tender, peripheral pulses presents. Skin: No rashes, no lesions, warm to touch. clean surgical scar along the R-side abdomen and extending across the upper abdomen all the way below the left rib cage. Neuro: No focal neurological deficits. motor and sensory intact. Psych: Cooperative, appropriate mood and effect. Discharge Plan Plan Patient Disposition: HOME (Self Care) Prescriptions/Referrals Prescriptions/Med Rec: New apixaban 5 mg tablet 5 mg PO BID 30 Days Qty: 60 0RF metoprolol succinate 100 mg tablet extended release 24 hr 100 mg PO QDAY 30 Days Qty: 30 0RF amiodarone 200 mg tablet 200 mg PO BID 14 Days Qty: 28 0RF amiodarone 200 mg tablet 200 mg PO QDAY 30 Days Qty: 30 0RF Rx Instructions: Take 200mg twice a day for 2 weeks Then 200mg once a day after that Continued famotidine 20 mg tablet 20 mg PO QDAY Qty: 30 0RF ondansetron 4 mg tablet,disintegrating 4 mg PO PRN PRN (Reason: Vomiting) Patient Comments: DISSOLVE 1 TABLET ON THE TONGUE EVERY 4 TO 6 HOURS NEEDED FOR NAUSEA OR VOMITING Lenvima 12 mg/day (4 mg x 3) capsule 12 mg PO QDAY lactulose 20 gram packet 20 g PO BID Qty: 30 0RF tramadol 50 mg tablet 50 mg PO Q8H PRN (Reason: pain) Qty: 10 0RF valganciclovir 450 mg tablet 900 mg PO DAILY sennosides [senna] 8.6 mg tablet 17.2 mg PO HS PRN (Reason: Constipation) mycophenolate mofetil 250 mg capsule 1,000 mg PO BID Patient Comments: TAKE 4 CAPSULES BY MOUTH EVERY MORNING AND 4 CAPSULES BY MOUTH EVERY EVENING prednisone 5 mg tablet 5 mg PO QAM aspirin 81 mg tablet,delayed release (DR/EC) 81 mg PO QAM Patient Comments: TAKE 1 TABLET BY MOUTH EVERY DAY levothyroxine 25 mcg tablet 25 mcg PO QAMAC magnesium oxide 400 mg (241.3 mg magnesium) tablet 800 mg PO HS docusate sodium 100 mg capsule 100 mg PO BID tacrolimus 1 mg capsule 1 mg PO HS tacrolimus 0.5 mg capsule 0.5 mg PO QAM oxycodone 5 mg tablet 2.5 mg PO Q12H PRN (Reason: Pain, Severe) entecavir 0.5 mg tablet 0.5 mg PO QAMAC Mavyret 100-40 mg tablet 3 tab PO DAILY acetaminophen 500 mg Tablet 500 mg PO Q6H MDD 2000mg PRN (Reason: Pain, Mild) ergocalciferol (vitamin D2) 1,250 mcg (50,000 unit) capsule 50,000 unit PO QWEEK Rx Instructions: Sundays Discontinued Eliquis 5 mg tablet 5 mg PO QDAY Patient Comments: TAKE 1 TABLET BY MOUTH TWICE DAILY carvedilol [Coreg] 12.5 mg tablet 12.5 mg PO BID Qty: 60 0RF Rx Instructions: must administer with a meal/food hydralazine 25 mg tablet 25 mg PO BID Qty: 60 0RF metoprolol succinate 50 mg tablet extended release 24 hr 50 mg PO QDAY Qty: 5 0RF sulfamethoxazole-trimethoprim 800-160 mg tablet 1 tab PO MWF omeprazole 20 mg capsule,delayed release(/EC) 20 mg PO QAM Referrals: Jose Allen MD [Primary Care Provider] - Patient/Caregiver Discharge Instructions Other Discharge Activity Instructions:: ? Follow-up with PCP within 1 week of discharge ? Follow-up with cardiology, Dr. Jimenez within 1 week of discharge ? Continue taking ELIQUIS 5 mg twice daily ? Continue taking ASPIRIN 81 mg daily ? Continue taking AMIODARONE 200 mg twice daily for 2 weeks, then once daily after that ? Continue METOPROLOL 100 mg daily ? Continue all other medications as prescribed by your transplant team ? Return to ED if symptoms worsen, persist or new symptoms develop Print Language: Zambian Stand Alone Forms: [facility] Award Info., Patient Portal Info Letter Discharge Order Discharge Orders: Discharge (Routine); Ordered 06/17/24 Ordered By: Jagjit Kirk Quality Discharge Quality Measures VTE prophylaxis Attestestation Attestation I reviewed labs, imaging, EKG, home medications and prior available records. Face to face evaluation was performed by me. I have personally examined the patient and discussed assessment and plan with the IM team. I reviewed the resident note and agree with the plan with exceptions as below. Atrial fibrillation with RVR: Heart rate is now controlled. Echocardiogram showed preserved EF of 60 to 65% without pertinent valve abnormalities. Discussed with cardiology: Switch to oral amiodarone. Continue metoprolol 100 mg XL. Started Eliquis. Outpatient follow-up with cardiology. History of liver transplant: Recent. Resume home medications. Outpatient follow up with the transplant center. Hypothyroidism: Resume home levothyroxine. Time spent is 40 minutes. More than 50% of the time was spent on patient education and coordination of care.
== END 2024-06-17 18:36 | disposition home or self-care (01) | DRG 309 ==
LOC: SERX 06-16 03:18 → SERHOLD 06-16 03:52 → S2NX 06-16 07:48
PROVIDERS: Student in an Organized Health Care Education/Training Program; Admitting Provider Internal Medicine; Emergency Provider Emergency Medicine; PCP Family Medicine; Visit Provider Student in an Organized Health Care Education/Training Program
DX: I48.91 Unspecified atrial fibrillation (principal); E87.1 Hypo-osmolality and hyponatremia; Z94.4 Liver transplant status; Z94.0 Kidney transplant status; I10 Essential (primary) hypertension; K21.9 Gastro-esophageal reflux disease without esophagitis; Z85.05 Personal history of malignant neoplasm of liver; E83.42 Hypomagnesemia; E88.09 Other disorders of plasma-protein metabolism, not elsewhere classified; E03.9 Hypothyroidism, unspecified; D64.9 Anemia, unspecified; E78.1 Pure hyperglyceridemia
CPT/HCPCS: 36415; 71045; 80053; 80061; 81001; 83540; 83550; 83735; 83880; 84100; 84443; 84484; 85025; 85610; 85730; 93005; 93306; 96360; 96365; 96366; 99285; J0283; J3475; J3490; J7030; J7507; J7512; J7517; A9270

== ENCOUNTER 2025-02-24 09:41 | Emergency (ER) | payer MEDICARE, MEDICAID, SELFPAY ==
[2025-02-24 09:42] VITALS: BMI 34.2
[2025-02-24 10:18] VITALS: BP 169/97; PULSE 55; RESP 18; TEMP 36.9; O2SAT 96
--- NOTE | 2025-02-24 10:48 | PD.EDRME ---
Rapid Medical Screening Exam RME Arrival date/time: 02/24/25 09:41 Chief Complaint: General Adult/Misc Complain Vital signs: Vital Signs Temperature 98.5 F 02/24/25 10:18 Pulse Rate 55 L 02/24/25 10:18 Respiratory Rate 18 02/24/25 10:18 Blood Pressure 169/97 H 02/24/25 10:18 Pulse Oximetry (%) 96 02/24/25 10:18 Oxygen Delivery Method Room Air 02/24/25 10:18 Pulse ox is 96% room air Vital signs reviewed by provider: Yes RME Narrative: 70-year-old male presents to the emergency department with a complaint of chest pain that began earlier this morning and is resolving at the time of this writing. Denies difficulty breathing or shortness of breath.
--- NOTE | 2025-02-24 10:50 | EKG_ITS ---
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
--- NOTE | 2025-02-24 10:50 | XR_ITS ---
Examination: PA lateral chest 2 views TECHNIQUE: Upright PA lateral chest 2 views Date and time: February 24, 2025 1056 hours INDICATIONS: Onset hypertension beginning 2 days ago. FINDINGS: Mild prominence left ventricle No lobar pneumonia or pulmonary edema Surgical clips in the upper right abdomen Moderate thoracic spondylosis IMPRESSION: Mild prominence left ventricle No pneumonia or pulmonary edema
[2025-02-24 11:28] LABS: Basophils # (Auto) 0.0 Thou/mm3 (0.0-0.2); Basophils % (Auto) 1 % (0-2.5); Eosinophils # (Auto) 0.1 Thou/mm3 (0.0-0.5); Eosinophils % (Auto) 4 % (0-10); Hematocrit 46.3 % (41.0-53.0); Hemoglobin 15.6 g/dL (13.5-16.0); Immature Granulocytes Auto 0.02 Thou/mm3 (0.00-0.00); Lymphocytes # (Auto) 0.6 Thou/mm3 (1.0-4.8); Lymphocytes % (Auto) 19 % (10-50); Mean Corpuscular HGB Conc 33.7 g/dl (31.0-37.0); Mean Corpuscular Hemoglobin 30.5 pg (25.0-35.0); Mean Corpuscular Volume 90 fL (80-100); Monocytes # (Auto) 0.6 Thou/mm3 (0.0-0.8); Monocytes % (Auto) 19 % (0-12); Neutrophils # (Auto) 1.8 Thou/mm3 (1.8-7.7); Neutrophils % (Auto) 57 % (37-80); Nucleated Red Blood Cell # 0.00 Thou/mm3 (0.00-0.00); Nucleated Red Blood Cell % 0 /100 WBC (0); Platelet Count 201 Thou/mm3 (140-440); RDW Standard Deviation 43.0 fL (35.1-43.9); Red Blood Count 5.12 Miln/mm3 (4.50-5.90); White Blood Count 3.1 Thou/mm3 (3.8-10.6)
[2025-02-24 11:38] LABS: Collection Type, Urine Clean Catch; Squamous Epithelial Cell,Urine 0 /hpf (0-5)
[2025-02-24 11:44] LABS: B-Type Natriuretic Peptide 115 pg/mL (0-100)
[2025-02-24 11:46] LABS: INR 1.0 (0.9-1.3); Partial Thromboplastin Time 26.5 Seconds (22.0-36.0); Prothrombin Time 11.2 Seconds (9.0-12.2)
--- NOTE | 2025-02-24 11:47 | PD.EDADULT ---
ED General RME/HPI General Chief complaint: General Adult/Misc Complain Stated complaint: HIGH BP - 178/90 THIS AM Arrival date/time: 02/24/25 09:41 RME / HPI RME / HPI narrative: 70-year-old male presents to the emergency department with a complaint of chest pain that began earlier this morning and is resolving at the time of this writing. Denies difficulty breathing or shortness of breath. DR. LEDESMA MAIN ED EVALUATION 70 year old male with history of atrial fibrillation on Eliquis, hypertension, liver cancer s/p liver transplant, GERD presents to the ED for evaluation of elevated blood pressure. States last night he felt his blood pressure was elevated and reading was 187/90. This morning blood pressure reading again elevated with SBP 176. Accompanied by mild headache described as throbbing sensation. No other associated symptoms. Denies fevers, chills, chest pain, cough, shortness of breath, abdominal pain, n/v. Daughter reports the patient was previously on Lisinopril hczt 12.5mg-10mg for blood pressure but was discontinued 04/2024 after liver transplant. States his blood pressure had normalized until recently and was advised by PCP if blood pressure persistently read high, he would be restarted on medications. Current medications include: Prednisone, Cellcept, Prograf, Entecavir, Omeprazole, Aspirin, Levothyroxine, Metoprolol, Amiodarone, Eliquis, Nitro. Related Data Home Medications ?Medication ?Instructions ?Recorded ?Confirmed lenvatinib 12 mg/day (4 mg x 3) 12 mg PO QDAY 02/13/24 03/02/24 capsule (Lenvima) ondansetron 4 mg disintegrating 4 mg PO PRN PRN Vomiting 02/13/24 03/02/24 tablet acetaminophen 500 mg tablet 500 mg PO Q6H PRN Pain, Mild 06/16/24 06/16/24 aspirin 81 mg tablet,delayed 81 mg PO QAM 06/16/24 06/16/24 release docusate sodium 100 mg capsule 100 mg PO BID 06/16/24 06/16/24 entecavir 0.5 mg tablet 0.5 mg PO QAMAC 06/16/24 06/16/24 ergocalciferol (vitamin D2) 1,250 50,000 unit PO QWEEK 06/16/24 06/16/24 mcg (50,000 unit) capsule glecaprevir 100 mg-pibrentasvir 40 3 tab PO DAILY 06/16/24 06/16/24 mg tablet (Mavyret) levothyroxine 25 mcg tablet 25 mcg PO QAMAC 06/16/24 06/16/24 magnesium oxide 400 mg (241.3 mg 800 mg PO HS 06/16/24 06/16/24 magnesium) tablet mycophenolate mofetil 250 mg 1,000 mg PO BID 06/16/24 06/16/24 capsule oxycodone 5 mg tablet 2.5 mg PO Q12H PRN Pain, Severe 06/16/24 06/16/24 prednisone 5 mg tablet 5 mg PO QAM 06/16/24 06/16/24 sennosides 8.6 mg tablet (senna) 17.2 mg PO HS PRN Constipation 06/16/24 06/16/24 tacrolimus 0.5 mg capsule, 0.5 mg PO QAM 06/16/24 06/16/24 immediate-release tacrolimus 1 mg capsule, 1 mg PO HS 06/16/24 06/16/24 immediate-release valganciclovir 450 mg tablet 900 mg PO DAILY 06/16/24 06/16/24 Previous Rx's ?Medication ?Instructions ?Recorded famotidine 20 mg tablet 20 mg PO QDAY #30 tabs 03/24/21 lactulose 20 gram oral packet 20 g PO BID #30 ea 02/11/24 tramadol 50 mg tablet 50 mg PO Q8H PRN pain #10 tabs 04/14/24 amlodipine 10 mg tablet 10 mg PO QDAY Hypertension #30 tabs 02/24/25 Allergies Allergy/AdvReac Type Severity Reaction Status Date / Time No Known Allergies Allergy Verified 02/24/25 09:45 Review of Systems Review of Systems Systems Reviewed: All systems reviewed, normal except as documented Past Medical History Past Medical History CARDIAC: Positive Hypotension GASTROINTESTINAL: Positive Cirrhosis, Hemorrhoids and Gastroesophageal Reflux Disease MUSCULOSKELETAL: Positive Arthritis ENT: Negative Eye Prosthesis HEMATOLOGIC: Positive Blood Disorders and Anemia PSYCHO/SOCIAL: Positive Depression and Anxiety OTHER HISTORY: Positive Falls, Blood Transfusions and Cancer Family History FAMILY HISTORY: Positive Family Cardiac Disorders and Family Cancer Social History SMOKING STATUS: Former smoker SUBSTANCE USE: does not use ED Exam Narrative Physical exam: Constitutional: Awake, alert, nontoxic, no acute distress, overweight HEENT: NC, AT, EOMI Neck: Supple CV: RRR, no m/r/g Lungs: CTAB, no w/r/r, no respiratory distress. Abd: Soft, NT, NT, no HSM noted to palpation Extremities: No deformities, no edema noted Neuro: AAOx3, CN 2-12 GIBL, no acute neuro deficit noted. rapid alternating hand movements intact, Romberg negative. Skin: Warm, dry, intact Course Course Course Narrative: 1156h: Blood pressuree 182/95 1230h: Labs and imaging reviewed. No significant acute concerning abnormalities noted at this time. Patient's blood pressure is noted to be elevated. Is on metoprolol 100 mg daily for his history of atrial fibrillation. Does have history of renal and liver transplant in the past. Would give dose of amlodipine 10 mg now given reported recently elevated pressures in the 170s and 180s systolic. Will give prescription for home and recommend close outpatient follow-up with PCP for further care. Patient verbalized understanding and agreement with plan of care. Stable for discharge home. Quality Measures none Orders Category Date Time Status EKG (ED ONLY) *Do not use* NOW Care 02/24/25 10:50 Completed EKG (ED Only) Stat Exams 02/24/25 10:50 Draft XR chest 2V Stat Exams 02/24/25 10:50 Completed B-Type Natriuretic Peptide Stat Lab 02/24/25 11:14 Completed CBC Stat Lab 02/24/25 11:14 Completed Comprehensive Metabolic Panel Stat Lab 02/24/25 11:14 Completed Drug Screen,Urine Stat Lab 02/24/25 11:15 Completed LDH (Lactate Dehydrogenase) Stat Lab 02/24/25 11:14 Completed Magnesium Stat Lab 02/24/25 11:14 Completed Partial Thromboplastin Time Stat Lab 02/24/25 11:14 Completed Prothrombin Time with INR Stat Lab 02/24/25 11:14 Completed Troponin I Stat Lab 02/24/25 11:14 Completed Urinalysis Stat Lab 02/24/25 11:15 Completed Acetaminophen Tab [Tylenol Tab] Med 02/24/25 12:27 Discontinued 975 mg PO X1 ONE amLODIPine BESYLATE [Norvasc] Med 02/24/25 12:20 Discontinued 10 mg PO X1 ONE Vital Signs Vital signs: Vital Signs Temperature 98.5 F 02/24/25 10:18 Pulse Rate 55 L 02/24/25 10:18 Respiratory Rate 18 02/24/25 10:18 Blood Pressure 169/97 H 02/24/25 10:18 Pulse Oximetry (%) 96 02/24/25 10:18 Oxygen Delivery Method Room Air 02/24/25 10:18 Pulse ox is 96% on room air which is adequate. Discharge Plan Plan Patient Disposition: HOME (Self Care) Patient condition on transfer: Stable Prescriptions/Referrals Prescriptions/Med Rec: New amlodipine 10 mg tablet 10 mg PO QDAY Qty: 30 0RF No Action famotidine 20 mg tablet 20 mg PO QDAY Qty: 30 0RF ondansetron 4 mg tablet,disintegrating 4 mg PO PRN PRN (Reason: Vomiting) Patient Comments: DISSOLVE 1 TABLET ON THE TONGUE EVERY 4 TO 6 HOURS NEEDED FOR NAUSEA OR VOMITING Lenvima 12 mg/day (4 mg x 3) capsule 12 mg PO QDAY lactulose 20 gram packet 20 g PO BID Qty: 30 0RF tramadol 50 mg tablet 50 mg PO Q8H PRN (Reason: pain) Qty: 10 0RF valganciclovir 450 mg tablet 900 mg PO DAILY sennosides [senna] 8.6 mg tablet 17.2 mg PO HS PRN (Reason: Constipation) mycophenolate mofetil 250 mg capsule 1,000 mg PO BID Patient Comments: TAKE 4 CAPSULES BY MOUTH EVERY MORNING AND 4 CAPSULES BY MOUTH EVERY EVENING prednisone 5 mg tablet 5 mg PO QAM aspirin 81 mg tablet,delayed release (DR/EC) 81 mg PO QAM Patient Comments: TAKE 1 TABLET BY MOUTH EVERY DAY levothyroxine 25 mcg tablet 25 mcg PO QAMAC magnesium oxide 400 mg (241.3 mg magnesium) tablet 800 mg PO HS docusate sodium 100 mg capsule 100 mg PO BID tacrolimus 1 mg capsule 1 mg PO HS tacrolimus 0.5 mg capsule 0.5 mg PO QAM oxycodone 5 mg tablet 2.5 mg PO Q12H PRN (Reason: Pain, Severe) entecavir 0.5 mg tablet 0.5 mg PO QAMAC Mavyret 100-40 mg tablet 3 tab PO DAILY acetaminophen 500 mg Tablet 500 mg PO Q6H MDD 2000mg PRN (Reason: Pain, Mild) ergocalciferol (vitamin D2) 1,250 mcg (50,000 unit) capsule 50,000 unit PO QWEEK Rx Instructions: Sundays Referrals: Jose Allen MD [Primary Care Provider] - In 1 week Problem List Clinical Impression: Hypertension, uncontrolled Patient/Caregiver Discharge Instructions Diet Instructions: A plant-based diet would be a healthier option for you given your chronic medical conditions. As much as possible, avoid intake of meats as well as all highly processed foods. Increase the amount of fresh fruits and vegetables and whole grains. Avoid any alcohol and beverages with caffeine. Education Materials: Controlling High Blood Pressure, Low-Salt Choices, ED Hypertension, Established Print Language: Jamaican Stand Alone Forms: [employer] Award Info., Patient Portal Info Letter MDM Narrative [facility] hospital course: IAdrianna am scribing for and in the presence of Dr. Ledesma. Clinical Information Provided by patient and family Medical Records Reviewed [facility] I reviewed admission from 06/15/2024 through 06/17/2024 for afib with rvr Meds/Rx Considered, not Ordered None Labs/Rad/Tests considered, not Ordered None Chronic Illness/Social Conditions which may negatively complicate care or outcome(s)-explain: None or not applicable EKG Interpretation EKG #1: Date/time of EK02/24/25 10:53 am EKG interpretation: NSR, rate 51, no STEMI Lab Interpretation Labs: interpreted by me and see narrative above Lab(s) interpretation(s): cbc, cmp, ua, uds, bnp, trop, ldh Imaging Radiology reports / interpretation(s): Ordering Physician: Carlos A Pastor PA-C Date of Service: 02/24/25 Procedure(s): XR chest 2V Accession Number(s): [id number] cc: Jose Allen MD; Robin Stokes MD; Carlos A Pastor PA-C~ Examination: PA lateral chest 2 views TECHNIQUE: Upright PA lateral chest 2 views Date and time: February 24, 2025 1056 hours INDICATIONS: Onset hypertension beginning 2 days ago. FINDINGS: Mild prominence left ventricle No lobar pneumonia or pulmonary edema Surgical clips in the upper right abdomen Moderate thoracic spondylosis IMPRESSION: Mild prominence left ventricle No pneumonia or pulmonary edema Dictated By: Robin Stokes MD Signed By: <Electronically signed by Robin Stokes MD in OV> 02/24/25 1110 Medication Administration(s) Medication Administration History Discontinued Medications Acetaminophen (Acetaminophen 325 Mg Tablet) 975 mg PO X1 ONE Stop: 02/24/25 12:28 Last Admin: 02/24/25 12:30 Dose: Not Given Documented By: NGOZI Non-Admin Reason: Patient Refused Amlodipine Besylate (Amlodipine Besylate 5 Mg Tablet) 10 mg PO X1 ONE Stop: 02/24/25 12:21 Last Admin: 02/24/25 12:26 Dose: 10 mg Documented By: NGOZI See above Diagnosis Differential diagnosis: Uncontrolled hypertension, hypertensive urgency/emergency, headache Most likely dx, and/or detailed dx discussion: Uncontrolled hypertension, headache, history of renal transplant Dispositon Disposition: Discharge Home
[2025-02-24 11:55] LABS: Amphetamine/Methamp Scrn,U Negative (Negative); Barbiturate Screen,Urine Negative (Negative); Benzodiazepines Screen,Urine Negative (Negative); Benzoylecgonine Screen, Ur Negative (Negative); Fentanyl Screen,Urine Negative (Negative); Opiate Screen,Urine Negative (Negative); THC Screen,Urine Negative (Negative)
[2025-02-24 11:57] LABS: Alanine Aminotransferase 8 U/L (10-49); Albumin, Serum 4.7 gm/dL (3.4-4.8); Albumin/Globulin Ratio 1.7 (1.2-2.2); Alkaline Phosphatase 86 U/L (46-116); Anion Gap 8 (7-16); Aspartate Amino Transferase 15 U/L (0-34); BUN/Creatinine Ratio 15 Ratio (12-20); Bilirubin,Total 0.6 mg/dL (0.3-1.2); Blood Urea Nitrogen 17 mg/dL (9-23); Calcium 10.1 mg/dL (8.3-10.6); Calcium (Corrected) 10.1 mg/dL (8.5-10.1); Carbon Dioxide 28.7 mMol/L (20.0-31.0); Chloride 103 mMol/L (98-107); Creatinine (Component) 1.1 mg/dL (0.6-1.3); Estimated Creatinine Clearance 68.8 mL/min (>60); Globulin 2.7 gm/dL (2.3-3.5); Glucose 121 mg/dL (74-106); LDH (Lactate Dehydrogenase) 224 U/L (120-246); Magnesium 1.4 mg/dL (1.6-2.6); Osmolality,Calculated 281 (275-295); Potassium 4.3 mMol/L (3.4-5.1); Sodium 140 mMol/L (136-145); Total Protein 7.4 gm/dL (5.7-8.2); Troponin I < 0.020 ng/mL (0.0-0.045); eGFR > 60 See Note
[2025-02-24 12:11] LABS: Bacteria,Urine Rare; Bilirubin,Urine Negative (Negative); Blood,Urine Negative (Negative); Clarity,Urine Clear (Clear/Hazy); Color,Urine Yellow (Lt Yel-Yel); Glucose, Urine Negative (Negative); Ketones,Urine Negative (Negative); Leukocyte Esterase,Urine Negative (Negative); Nitrite,Urine Negative (Negative); PH,Urine 5.5 (5.0-7.0); Protein,Urine Trace (Neg - Trace); RBC,Urine 1 /hpf (0-3); Specific Gravity,Urine 1.028 (1.001-1.035); Urobilinogen,Urine Negative mg/dL (0.0-1.0); WBC,Urine 1 /hpf (0-5)
[2025-02-24 12:26] VITALS: BP 169/97; PULSE 55
[2025-02-24 12:41] VITALS: BP 144/88; PULSE 68
== END 2025-02-24 12:42 | disposition home or self-care (01) ==
PROVIDERS: Physician Assistant; Emergency Provider Family Medicine; PCP Family Medicine
DX: I10 Essential (primary) hypertension (principal); K21.9 Gastro-esophageal reflux disease without esophagitis; I48.91 Unspecified atrial fibrillation; Z94.4 Liver transplant status
CPT/HCPCS: 36415; 71046; 80053; 80307; 81001; 83615; 83735; 83880; 84484; 85025; 85610; 85730; 93005; 99283; A9270

== ENCOUNTER 2025-03-19 07:44 | Emergency (ER) | payer MEDICARE, MEDICAID, SELFPAY ==
[2025-03-19] VITALS (9 sets, daily range): BP systolic 89–133; BP diastolic 45–98; PULSE 75–82; RESP 17–22; TEMP 36.8–39.3; O2SAT 93–99; BMI 33.2
--- NOTE | 2025-03-19 08:10 | PD.EDRME ---
Rapid Medical Screening Exam [facility] Arrival date/time: 03/19/25 07:44 70-year-old male with a history of a kidney transplant, liver transplant, atrial fibrillation presents to the emergency room with a chief complaint of a fever and headache x 8 days. I have greeted and performed a focused initial assessment of this patient. A comprehensive ED assessment and evaluation of the patient, analysis of all test results, and completion of the medical decision making process will be conducted by additional ED providers. Chief Complaint: Flu Like Symptoms Time Seen by Provider: 03/19/25 07:54 Vital signs: Vital Signs Temperature 102.3 F H 03/19/25 07:55 Pulse Rate 77 03/19/25 07:55 Respiratory Rate 18 03/19/25 07:55 Blood Pressure 116/70 03/19/25 07:55 Pulse Oximetry (%) 94 L 03/19/25 07:55 Oxygen Delivery Method Room Air 03/19/25 07:55 Vital signs reviewed by provider: Yes
[2025-03-19] MEDS: ACETAMINOPHEN 500 MG TABLET 1000 MG PO (08:52)
[2025-03-19 09:03] LABS: Lactate (Lactic Acid) 2.0 mMol/L (0.4-2.0)
[2025-03-19 09:05] LABS: Basophils # (Auto) 0.1 Thou/mm3 (0.0-0.2); Basophils % (Auto) 1 % (0-2.5); Eosinophils # (Auto) 0.0 Thou/mm3 (0.0-0.5); Eosinophils % (Auto) 0 % (0-10); Hematocrit 43.1 % (41.0-53.0); Hemoglobin 15.0 g/dL (13.5-16.0); Immature Granulocytes Auto 0.09 Thou/mm3 (0.00-0.00); Lymphocytes # (Auto) 2.0 Thou/mm3 (1.0-4.8); Lymphocytes % (Auto) 23 % (10-50); Mean Corpuscular HGB Conc 34.8 g/dl (31.0-37.0); Mean Corpuscular Hemoglobin 30.4 pg (25.0-35.0); Mean Corpuscular Volume 87 fL (80-100); Monocytes # (Auto) 0.4 Thou/mm3 (0.0-0.8); Monocytes % (Auto) 5 % (0-12); Neutrophils # (Auto) 6.4 Thou/mm3 (1.8-7.7); Neutrophils % (Auto) 71 % (37-80); Nucleated Red Blood Cell # 0.00 Thou/mm3 (0.00-0.00); Nucleated Red Blood Cell % 0 /100 WBC (0); Platelet Count 193 Thou/mm3 (140-440); RDW Standard Deviation 39.6 fL (35.1-43.9); Red Blood Count 4.94 Miln/mm3 (4.50-5.90); White Blood Count 8.9 Thou/mm3 (3.8-10.6)
[2025-03-19 09:18] LABS: Collection Type, Urine Clean Catch
[2025-03-19 09:30] LABS: Amorphous Crystals,Urine Present (Absent); Bacteria,Urine Rare; Bilirubin,Urine Negative (Negative); Blood,Urine 1+ (Negative); Color,Urine Yellow (Lt Yel-Yel); Glucose, Urine Negative (Negative); Granular Casts,Urine 1 /hpf (0-1); Ketones,Urine Negative (Negative); Leukocyte Esterase,Urine Negative (Negative); Nitrite,Urine Negative (Negative); PH,Urine 5.5 (5.0-7.0); Protein,Urine 1+ (Neg - Trace); RBC,Urine 5 /hpf (0-3); Specific Gravity,Urine 1.023 (1.001-1.035); Squamous Epithelial Cell,Urine < 1 /hpf (0-5); Urobilinogen,Urine Negative mg/dL (0.0-1.0); WBC,Urine 4 /hpf (0-5)
[2025-03-19 09:35] LABS: Alanine Aminotransferase 16 U/L (10-49); Albumin, Serum 4.3 gm/dL (3.4-4.8); Albumin/Globulin Ratio 1.2 (1.2-2.2); Alkaline Phosphatase 83 U/L (46-116); Anion Gap 14 (7-16); Aspartate Amino Transferase 40 U/L (0-34); BUN/Creatinine Ratio 12 Ratio (12-20); Bilirubin,Total 0.6 mg/dL (0.3-1.2); Blood Urea Nitrogen 21 mg/dL (9-23); Calcium 10.3 mg/dL (8.3-10.6); Calcium (Corrected) 10.3 mg/dL (8.5-10.1); Carbon Dioxide 22.2 mMol/L (20.0-31.0); Chloride 99 mMol/L (98-107); Creatinine (Component) 1.7 mg/dL (0.6-1.3); Estimated Creatinine Clearance 43.9 mL/min (>60); Globulin 3.6 gm/dL (2.3-3.5); Glucose 131 mg/dL (74-106); Osmolality,Calculated 275 (275-295); Potassium 3.8 mMol/L (3.4-5.1); Procalcitonin 0.82 ng/ml (0.0-0.49); Sodium 135 mMol/L (136-145); Total Protein 7.9 gm/dL (5.7-8.2); eGFR 43 See Note
[2025-03-19 09:51] LABS: Clarity,Urine Hazy (Clear/Hazy)
--- NOTE | 2025-03-19 11:08 | PD.EDADULT ---
ED General RME/HPI General Chief complaint: Flu Like Symptoms Stated complaint: FEVER X2 DAYS AND MIGRAINE Time Seen by Provider: 03/19/25 07:54 Arrival date/time: 03/19/25 07:44 Limitations: no limitations RME / HPI RME / HPI narrative: 03/19/25 07:44 70-year-old male with a history of a kidney transplant, liver transplant, atrial fibrillation presents to the emergency room with a chief complaint of a fever and headache x 8 days. I have greeted and performed a focused initial assessment of this patient. A comprehensive ED assessment and evaluation of the patient, analysis of all test results, and completion of the medical decision making process will be conducted by additional ED providers. DR. ZEE MAIN ED EVALUATION: 70 year old male with history of renal and liver transplants performed 04/2024 in [place] presents to the ED for evaluation of fevers, headache, and malaise beginning 8 days ago. Per son, the patient was evaluated in the [place] ER where he had a CT scan and labs performed; states the creatinine level was 1.52 otherwise all other laboratories were within normal limits and discharged home. States his symptoms have not improved since arriving home. Daughter states they have touched base with the transplant team and advised the patient follow up with his PCP. Daughter states the patient consulted his PCP Dr. Allen yesterday who prescribed Prednisone and Sumatriptan for the headache which he has yet to start. Daughter additionally reports the patient was complaining of central chest pain yesterday and bilateral lower extremity weakness. Patient states the chest pain has since resolved though legs are still feeling weak today. Related Data Home Medications ?Medication ?Instructions ?Recorded ?Confirmed lenvatinib 12 mg/day (4 mg x 3) 12 mg PO QDAY 02/13/24 03/02/24 capsule (Lenvima) ondansetron 4 mg disintegrating 4 mg PO PRN PRN Vomiting 02/13/24 03/02/24 tablet acetaminophen 500 mg tablet 500 mg PO Q6H PRN Pain, Mild 06/16/24 06/16/24 aspirin 81 mg tablet,delayed 81 mg PO QAM 06/16/24 06/16/24 release docusate sodium 100 mg capsule 100 mg PO BID 06/16/24 06/16/24 entecavir 0.5 mg tablet 0.5 mg PO QAMAC 06/16/24 06/16/24 ergocalciferol (vitamin D2) 1,250 50,000 unit PO QWEEK 06/16/24 06/16/24 mcg (50,000 unit) capsule glecaprevir 100 mg-pibrentasvir 40 3 tab PO DAILY 06/16/24 06/16/24 mg tablet (Mavyret) levothyroxine 25 mcg tablet 25 mcg PO QAMAC 06/16/24 06/16/24 magnesium oxide 400 mg (241.3 mg 800 mg PO HS 06/16/24 06/16/24 magnesium) tablet mycophenolate mofetil 250 mg 1,000 mg PO BID 06/16/24 06/16/24 capsule oxycodone 5 mg tablet 2.5 mg PO Q12H PRN Pain, Severe 06/16/24 06/16/24 prednisone 5 mg tablet 5 mg PO QAM 06/16/24 06/16/24 sennosides 8.6 mg tablet (senna) 17.2 mg PO HS PRN Constipation 06/16/24 06/16/24 tacrolimus 0.5 mg capsule, 0.5 mg PO QAM 06/16/24 06/16/24 immediate-release tacrolimus 1 mg capsule, 1 mg PO HS 06/16/24 06/16/24 immediate-release valganciclovir 450 mg tablet 900 mg PO DAILY 06/16/24 06/16/24 Previous Rx's ?Medication ?Instructions ?Recorded famotidine 20 mg tablet 20 mg PO QDAY #30 tabs 03/24/21 lactulose 20 gram oral packet 20 g PO BID #30 ea 02/11/24 tramadol 50 mg tablet 50 mg PO Q8H PRN pain #10 tabs 04/14/24 amlodipine 10 mg tablet 10 mg PO QDAY Hypertension #30 tabs 02/24/25 Allergies Allergy/AdvReac Type Severity Reaction Status Date / Time No Known Allergies Allergy Verified 03/19/25 07:48 Review of Systems Review of Systems Systems Reviewed: All systems reviewed, normal except as documented Past Medical History Past Medical History CARDIAC: Positive Atrial Fibrillation, Hypertension and Hypotension GASTROINTESTINAL: Positive Cirrhosis, Hemorrhoids and Gastroesophageal Reflux Disease MUSCULOSKELETAL: Positive Arthritis HEMATOLOGIC: Positive Blood Disorders and Anemia PSYCHO/SOCIAL: Positive Depression and Anxiety OTHER HISTORY: Positive Falls, Blood Transfusions and Cancer Family History FAMILY HISTORY: Positive Family Cardiac Disorders and Family Cancer Surgical History OTHER SURGICAL HX: kidney and liver transplant april 2024 Social History SMOKING STATUS: Former smoker SUBSTANCE USE: does not use ED Exam General Limitations: Present no limitations General appearance: Present alert, in no apparent distress and obese Head Head exam: Present atraumatic, normocephalic and normal inspection Eye Eye exam: Present normal appearance, PERRL and EOMI ENT ENT exam: Present normal exam, normal oropharynx and mucous membranes moist Neck Neck exam: Present normal inspection, full ROM and trachea midline Chest Chest inspection: Present normal inspection and symmetric chest wall rise Respiratory Respiratory exam: Present normal lung sounds bilaterally Cardiovascular Cardiovascular exam: Present regular rate, normal rhythm and normal heart sounds Abdominal Exam Abdominal exam: Present soft, normal bowel sounds and other (well healed surgical scar mid abdomen, right lower abdomen palpable mass consistent with transplant kidney) Extremities Exam Extremities exam: Present normal inspection and full ROM Back Exam Back exam: Present normal inspection and full ROM Neurological Exam Neurological exam: Present alert, oriented X3 and CN II-XII intact Psychiatric Psychiatric exam: Present normal affect and normal mood Skin Skin exam: Present warm, dry, intact and normal color Course Quality Measures none Orders Category Date Time Status Bedside COVID-19 Antigen Test NOW Care 03/19/25 08:09 Active Bedside Influenza A&B Antigen Test NOW Care 03/19/25 08:09 Completed Fast Food Manager NOW Care 03/19/25 15:10 Active Continuous Pulse Oximetry NOW Care 03/19/25 15:10 Active Insert IV NOW Care 03/19/25 15:10 Active Referral - Quality Assurance Supervisor Trim Stat Cons 03/19/25 17:26 Active US renal transplant w dop Stat Exams 03/19/25 15:12 Completed Blood Culture (Lab) Stat Lab 03/19/25 08:57 Received CBC Stat Lab 03/19/25 08:53 Completed CMP [Comprehensive Metabolic Panel] Stat Lab 03/19/25 08:53 Completed Clostridium Difficile PCR Stat Lab 03/19/25 15:51 Ordered Lactate (Lactic Acid) Stat Lab 03/19/25 08:53 Completed Procalcitonin Stat Lab 03/19/25 08:53 Completed Stool Culture Stat Lab 03/19/25 15:51 Ordered Stool for WBCs Stat Lab 03/19/25 15:51 Ordered UA [Urinalysis] Stat Lab 03/19/25 09:11 Completed Urinalysis Stat Lab 03/19/25 15:10 Ordered Urine Culture Stat Lab 03/19/25 09:11 Received Acetaminophen Tab [Tylenol ES Tab] Med 03/19/25 08:10 Discontinued 1,000 mg PO X1 ONE Acetaminophen Tab [Tylenol Tab] Med 03/19/25 15:13 Discontinued 650 mg PO X1 ONE Piper/Tazo 3.375 gm Premix [Zosyn] Med 03/19/25 15:13 Discontinued 3.375 gm in 50 ml IV X1 Sodium Chloride 0.9% 1000 ml [Ns] 1,000 ml Med 03/19/25 15:10 Active IV 150 mls/hr Sodium Chloride 0.9% 1000 ml [Ns] 1,000 ml Med 03/19/25 11:17 Discontinued IV 999 mls/hr Vital Signs Vital signs: Vital Signs Temperature 102.3 F H 03/19/25 07:55 Pulse Rate 77 03/19/25 07:55 Respiratory Rate 18 03/19/25 07:55 Blood Pressure 116/70 03/19/25 07:55 Pulse Oximetry (%) 94 L 03/19/25 07:55 Oxygen Delivery Method Room Air 03/19/25 07:55 Pulse ox is 94% on room air which is adequate. Discharge Plan Plan Patient Disposition: Xfer Acute Care Fac Prescriptions/Referrals Prescriptions/Med Rec: No Action famotidine 20 mg tablet 20 mg PO QDAY Qty: 30 0RF ondansetron 4 mg tablet,disintegrating 4 mg PO PRN PRN (Reason: Vomiting) Patient Comments: DISSOLVE 1 TABLET ON THE TONGUE EVERY 4 TO 6 HOURS NEEDED FOR NAUSEA OR VOMITING Lenvima 12 mg/day (4 mg x 3) capsule 12 mg PO QDAY lactulose 20 gram packet 20 g PO BID Qty: 30 0RF tramadol 50 mg tablet 50 mg PO Q8H PRN (Reason: pain) Qty: 10 0RF valganciclovir 450 mg tablet 900 mg PO DAILY sennosides [senna] 8.6 mg tablet 17.2 mg PO HS PRN (Reason: Constipation) mycophenolate mofetil 250 mg capsule 1,000 mg PO BID Patient Comments: TAKE 4 CAPSULES BY MOUTH EVERY MORNING AND 4 CAPSULES BY MOUTH EVERY EVENING prednisone 5 mg tablet 5 mg PO QAM aspirin 81 mg tablet,delayed release (DR/EC) 81 mg PO QAM Patient Comments: TAKE 1 TABLET BY MOUTH EVERY DAY levothyroxine 25 mcg tablet 25 mcg PO QAMAC magnesium oxide 400 mg (241.3 mg magnesium) tablet 800 mg PO HS docusate sodium 100 mg capsule 100 mg PO BID tacrolimus 1 mg capsule 1 mg PO HS tacrolimus 0.5 mg capsule 0.5 mg PO QAM oxycodone 5 mg tablet 2.5 mg PO Q12H PRN (Reason: Pain, Severe) entecavir 0.5 mg tablet 0.5 mg PO QAMAC Mavyret 100-40 mg tablet 3 tab PO DAILY acetaminophen 500 mg Tablet 500 mg PO Q6H MDD 2000mg PRN (Reason: Pain, Mild) ergocalciferol (vitamin D2) 1,250 mcg (50,000 unit) capsule 50,000 unit PO QWEEK Rx Instructions: Sundays amlodipine 10 mg tablet 10 mg PO QDAY Qty: 30 0RF Referrals: Jose Allen MD [Primary Care Provider, Family Practice] - In 1 week Problem List Clinical Impression: Acute febrile illness, Acute renal insufficiency, Elevated procalcitonin, Gastroenteritis Patient/Caregiver Discharge Instructions Print Language: Guyanese Stand Alone Forms: Amira Award Info., Patient Portal Info Letter [facility] Narrative Sign out note: 1800: Patient signed out to Dr. Silveira pending transfer. [facility] hospital course: IAdrianna, clary scribing for and in the presence of Dr. Zee. In the ED patient has had multiple episodes of diarrhea, placed an order for stool culture and stool WBCs. Patient also has had persistent fever. There is no WBC elevation, creatinine is 1.7 (compared to creatinine on 02/24/2025 that was 1.1). Procalcitonin is elevated at 0.82. Ordered a transplant renal ultrasound that shows no fluid collection around the kidneys and there is good arterial and venous flow. Clinical Information Provided by patient and family Medical Records Reviewed [facility] I reviewed ED visit on 02/24/2025 Meds/Rx Considered, not Ordered None Labs/Rad/Tests considered, not Ordered None Chronic Illness/Social Conditions which may negatively complicate care or outcome(s)-explain: Liver disease EKG EKG not done Lab Interpretation Labs: interpreted by co Lab(s) interpretation(s): CBC within normal limits Creatinine 1.7 eGFR 43.90 UA shows no infection Imaging Radiology reports / interpretation(s): Ordering Physician: Robb Zee MD Date of Service: 03/19/25 Procedure(s): US renal transplant w dop Accession Number(s): [id number] cc: Robb Zee MD; Jose Allen MD; Robin Stokes MD~ Examination: Ultrasound transplant kidney Technique: Grayscale sonographic images transplant kidney including assessment peak systolic velocities, calculation resistive indices Date and time: March 19, 2025, 1613 hrs. Indications: Fever this week, history right kidney transplant April 2024. Findings: Right transplant kidney 12.4 cm no hydronephrosis Mild elevation of peak systolic velocity at the renal anastomosis 195 cm/s Mildly elevated resistive index Impression: Consider MRA pelvis without contrast follow-up to exclude renal artery stenosis to the transplant kidney Dictated By: Robin Stokes MD Signed By: <Electronically signed by Robin Stokes MD in OV> 03/19/25 1726 Medication Administration(s) Medication Administration History Sodium Chloride (Ns) 1,000 mls @ 150 mls/hr IV .Q6H40M ONE Stop: 03/19/25 21:49 Last Admin: 03/19/25 16:11 Dose: 150 mls/hr Documented By: TM Discontinued Medications Acetaminophen (Acetaminophen 500 Mg Tablet) 1,000 mg PO X1 ONE Stop: 03/19/25 08:11 Last Admin: 03/19/25 08:52 Dose: 1,000 mg Documented By: AA Acetaminophen (Acetaminophen 325 Mg Tablet) 650 mg PO X1 ONE Stop: 03/19/25 15:14 Last Admin: 03/19/25 16:11 Dose: 650 mg Documented By: TM Sodium Chloride (Ns) 1,000 mls @ 999 mls/hr IV .Q1H1M ONE Stop: 03/19/25 12:17 Last Infusion: 03/19/25 12:16 Dose: Infused Documented By: Admin: 03/19/25 11:15 Dose: 999 mls/hr Documented By: TM Piperacillin/Tazobactam/Dextrose (Zosyn) 3.375 gm in 50 mls @ 100 mls/hr IV X1 ONE Stop: 03/19/25 15:42 Last Admin: 03/19/25 16:10 Dose: 100 mls/hr Documented By: TM See above Consultations/Discussions re: Management Consult #1: Date/time: 03/19/25 5:20 pm Physician, specialty, service, details: I spoke with music therapy specialist Dr. Magana. Discussed patients PMHx, HPI, ED course, exam findings, labs, and radiology results. He recommends transferring the patient to a transplant center. Our transfer nurse was made aware. Diagnosis Most likely dx, and/or detailed dx discussion: Acute febrile illness Acute renal insufficiency Elevated procalcitonin Gastroenteritis Dispositon Disposition: other (Signed out pending transfer )
[2025-03-19] MEDS: SODIUM CHLORIDE 0.9% 1000 ML 1,000 ML 999 ML IV (11:15)
--- NOTE | 2025-03-19 15:12 | XR_ITS ---
Examination: Ultrasound transplant kidney Technique: Grayscale sonographic images transplant kidney including assessment peak systolic velocities, calculation resistive indices Date and time: March 19, 2025, 1613 hrs. Indications: Fever this week, history right kidney transplant April 2024. Findings: Right transplant kidney 12.4 cm no hydronephrosis Mild elevation of peak systolic velocity at the renal anastomosis 195 cm/s Mildly elevated resistive index Impression: Consider MRA pelvis without contrast follow-up to exclude renal artery stenosis to the transplant kidney
[2025-03-19] MEDS: PIPER/TAZO 3.375 GM PREMIX 3.375 GM/50 ML BAG IV (16:10)
[2025-03-19] MEDS: SODIUM CHLORIDE 0.9% 1000 ML 1,000 ML 150 ML IV (16:11)
[2025-03-19] MEDS: ACETAMINOPHEN 325 MG TABLET 650 MG PO (16:11)
--- NOTE | 2025-03-19 17:56 | PC.CM ---
Addendum entered by Nadine Altamirano RN 03/19/25 18:47: [facility] Liver transplant center is reviewing patient at this time. I faxed over the paperwork and I pushed over images. I took packet with 1CD to the charge nurse in ED. Liver transplant center at [facility] phone # [phone] fax# [phone]. Addendum entered by Nadine Altamirano RN 03/19/25 18:37: 1805 I received a call from [facility] and I put the call through to Dr. Us. Original Note: 1800 I started a packet and I made a CD. [facility] sent me a link to upload images. 1730 I received a referral to transfer patient to [facility] transplant center. As per Dr. Us patient had a liver transplant on 04/2024. I contacted the Liver transplant center at [facility] phone # [phone] fax# [phone] and I initiated a transfer. I faxed over information.
--- NOTE | 2025-03-19 19:11 | PD.EDADDENDU ---
Emergency Room Addendum Addendum Narrative: 1800: Care assumed from Dr. Us, the previous shift emergency physician. Past medical, surgical, social and family history reviewed. Vitals and home medications reviewed. Results and treatment plan discussed. I will assume the care of the patient at this time and will follow the patient, pending transfer. Please refer to the emergency department record for history and examination from initial visit. 2324: Dr. Adrienne Egan, transplant physician, from [facility] accepts the patient for transfer. Pending bed availability at this time.
--- NOTE | 2025-03-19 23:33 | PC.NURSE ---
Accepted to [facility] awaiting bed assignment.
[2025-03-20 00:48] VITALS: BP 136/65; PULSE 82; RESP 18; TEMP 37.5; O2SAT 97
--- NOTE | 2025-03-20 01:05 | PC.NURSE ---
PT ACCEPTED [facility] [address] [facility] [address] LONG / RM [id number]. LIVER TRANSPLANT SPECIALIST [facility]. [facility]ACH CONTACTED FOR TRANSPORT AWAITING ETA
[2025-03-20 02:09] VITALS: TEMP 40.3
[2025-03-20] MEDS: ACETAMINOPHEN 325 MG TABLET 650 MG PO (02:09)
[2025-03-20] MEDS: PIPER/TAZO 3.375 GM PREMIX 3.375 GM/50 ML BAG IV (02:09)
[2025-03-20 02:20] VITALS: BP 120/75; PULSE 88; RESP 22; TEMP 39.6; O2SAT 99
[2025-03-20 03:09] VITALS: TEMP 38.8
[2025-03-20 03:13] VITALS: BP 102/61; PULSE 85; RESP 19; TEMP 38.8; O2SAT 95
[2025-03-20 03:14] VITALS: PULSE 87
== END 2025-03-20 04:02 | disposition short-term general hospital (02) ==
PROVIDERS: Nurse Practitioner Family; Emergency Provider Family Medicine; PCP Family Medicine
DX: N28.9 Disorder of kidney and ureter, unspecified (principal); K52.9 Noninfective gastroenteritis and colitis, unspecified; Z94.0 Kidney transplant status; I48.91 Unspecified atrial fibrillation; Z94.4 Liver transplant status; K21.9 Gastro-esophageal reflux disease without esophagitis; I10 Essential (primary) hypertension; Z87.891 Personal history of nicotine dependence; Z79.899 Other long term (current) drug therapy; Z79.621 Long term (current) use of calcineurin inhibitor; Z79.82 Long term (current) use of aspirin; Z79.890 Hormone replacement therapy
CPT/HCPCS: 36415; 76776; 80053; 81001; 83605; 84145; 85025; 87015; 87040; 87045; 87046; 87086; 87205; 87400; 87493; 87811; 87899; 96361; 96365; 99284; J2543; J7030; A9270